=== PATIENT | female | born 1960 | race Caucasian/White ===

== ENCOUNTER 2023-10-30 07:22 | Emergency (ER) | payer MEDICAID, SELFPAY ==
[2023-10-30] VITALS (7 sets, daily range): BP systolic 131–154; BP diastolic 71–83; PULSE 90–111; RESP 15–18; TEMP 36.6–37.1; O2SAT 91–95; BMI 22.4
--- NOTE | 2023-10-30 07:24 | HMH.EDGENADL ---
Discharge Plan Disposition Patient Disposition: Home, Self-Care Condition: Good Prescriptions Prescriptions: No Action atorvastatin 20 mg tablet 20 mg PO DAILY trazodone 50 mg tablet 50 mg PO HS donepezil 10 mg tablet 10 mg PO HS sertraline 100 mg tablet 100 mg PO DAILY olanzapine 10 mg tablet 10 mg PO BID acetaminophen 500 mg tablet 1,000 mg PO NEEDED MDD ' PRN (Reason: Pain) famotidine 20 mg tablet 20 mg PO DAILY lorazepam 2 mg tablet 2 mg PO NEEDED PRN (Reason: behavior) aspirin 81 mg tablet,chewable 81 mg PO DAILY folic acid 1 mg tablet 1 mg PO DAILY polyethylene glycol 3350 17 gram/dose powder 17 g PO DAILY memantine 10 mg tablet 10 mg PO BID cetirizine 10 mg tablet 10 mg PO DAILY Referrals Follow up/Referrals: Provider,Referral, MD [Primary Care Provider] - See instructions Activity Restrictions/Add. Instructions Additional Instructions/Restrictions: You have been evaluated for your abdominal pain, your CT imaging and labs were all reassuring. You were treated for nausea and have been able to keep liquids down. Please continue to take your prescribed medication of famotidine daily before meals. Please return with any new or worsening symptoms. Clinical Impressions Clinical Impression: Abdominal pain Instructions Patient Instructions: DI for Altered Mental Status Discharge ED Provider: Ghanshyam Joshua General Adult HPI General Chief complaint: Altered Mental Status Stated complaint: pysch Time Seen by Provider: 10/30/23 07:23 History of Present Illness HPI narrative: The patient presents with a chief complaint of stomach discomfort, describing the sensation as if her stomach is turning in circles. The discomfort began yesterday after consuming hot green chili. Following the meal, she experienced a feeling of pressure in her stomach and a sensation of being bloated, which prompted concern about potential [place], though she confirms not having vomited either yesterday or today. She also reports experiencing diarrhea but denies the presence of blood in it. The patient has a history of an appendectomy but denies any other regular stomach problems. She is currently on multiple medications, the specifics of which she cannot recall, and denies having diabetes, high blood pressure, or any other chronic medical conditions. The discomfort is localized more towards the upper part of her abdomen, and she describes the area as hard and bloated. She denies any recent antibiotic use or hospitalizations. Additionally, information obtained from another source indicates that the patient has been admitted from [facility] to [place] and has a history of COPD, hyperlipidemia, and dementia. There is a mention of possible recent changes to her medications. Please note that above description of symptoms, in this electronic medical record under categorization of recalled from ER triage doctor by RN are reflective of an initial nursing assessment, however, is not reflective of my full history and physical exam that was personally taken and clarified. Consequentially, this preceding description of symptoms, which may include the patient's categorized chief complaint in the EMR, do not reflect my personal clinical impression, and the ultimate description of history of present illness and patient stated complaints should be deferred to this section of the note. Unless stated otherwise or congruent with this section of the note, additional signs, symptoms, or incongruence should be interpreted as inaccurate with my clinical impression. Related Data Home Medications Medication Instructions Recorded Confirmed acetaminophen 500 mg tablet 1,000 mg PO NEEDED PRN Pain 10/30/23 10/30/23 aspirin 81 mg chewable tablet 81 mg PO DAILY 10/30/23 10/30/23 atorvastatin 20 mg tablet 20 mg PO DAILY 10/30/23 10/30/23 cetirizine 10 mg tablet 10 mg PO DAILY 10/30/23 10/30/23 donepezil 10 mg tablet 10 mg PO HS 10/30/23 10/30/23 famotidine 20 mg tablet 20 mg PO DAILY 10/30/23 10/30/23 folic acid 1 mg tablet 1 mg PO DAILY 10/30/23 10/30/23 lorazepam 2 mg tablet 2 mg PO NEEDED PRN behavior 10/30/23 10/30/23 memantine 10 mg tablet 10 mg PO BID 10/30/23 10/30/23 olanzapine 10 mg tablet 10 mg PO BID 10/30/23 10/30/23 polyethylene glycol 3350 17 17 g PO DAILY 10/30/23 10/30/23 gram/dose oral powder sertraline 100 mg tablet 100 mg PO DAILY 10/30/23 10/30/23 trazodone 50 mg tablet 50 mg PO HS 10/30/23 10/30/23 Allergies Allergy/AdvReac Type Severity Reaction Status Date / Time cephalexin [From Keflex] Allergy Verified 10/30/23 07:37 risperidone [From Risperdal] Allergy Verified 10/30/23 07:37 [facility] Disclaimer: The information contained in this section may have been updated after the patient was seen, as this information can be updated by other users. Medical History (Updated 10/30/23 @ 10:32 by Ghanshyam Joshua MD) Personal history of traumatic brain injury Tremor, unspecified Age-related osteoporosis without current pathological fracture Gastro-esophageal reflux disease without esophagitis Vascular dementia, unspecified severity, without behavioral disturbance, psychotic disturbance, mood disturbance, and anxiety Vascular dementia, unspecified severity, with other behavioral disturbance Dementia with behavioral disturbance Major depressive disorder, single episode, unspecified Unspecified mood [affective] disorder Other seasonal allergic rhinitis Alcohol abuse Hyperlipemia Insomnia COPD (chronic obstructive pulmonary disease) Social History Smoking Status: Never smoker alcohol intake: former current occupational status: other Travel in the last 8 weeks: None ROS Obtained: Yes other As per HPI Physical Exam General General appearance: alert and in no apparent distress Head Head exam: atraumatic and normocephalic Eye Eye exam: Present normal appearance Neck Neck exam: Present normal inspection Chest Chest inspection: Present normal inspection and symmetric chest wall rise Respiratory Respiratory exam: Present normal lung sounds bilaterally; Absent respiratory distress Cardiovascular Cardiovascular exam: Present regular rate and normal rhythm Abdominal Exam Abdominal exam: Present soft and distention; Absent guarding or rigidity Abdominal tenderness: Present epigastrium and mild Neurological Exam Neurological exam: Present alert and oriented X3 Psychiatric Psychiatric exam: Present normal affect and normal mood Skin Skin exam: Present warm and dry Medical Decision Making Medical Records Medical records reviewed: Yes I reviewed the patient's medical records. [place] Inquiry Pt receiving controlled substance: No Vital Signs: 10/30/23 07:23 10/30/23 07:30 10/30/23 08:00 Temperature 97.8 F Temperature Source Oral Pulse Rate 106 H 98 H Pulse Rate [Left Radial] 111 H Respiratory Rate 15 Blood Pressure 140/71 131/80 Blood Pressure [Right Arm] 146/77 H Blood Pressure Mean [Right Arm] 100 Blood Pressure Source Blood Pressure Position 02 Sat by Pulse Oximetry 92 L 93 L 93 L Oxygen Delivery Method Room Air Room Air Room Air 10/30/23 09:00 10/30/23 09:30 10/30/23 10:01 Temperature Temperature Source Pulse Rate 93 H 100 H 97 H Pulse Rate [Left Radial] Respiratory Rate Blood Pressure 152/74 H 154/82 H 150/83 H Blood Pressure [Right Arm] Blood Pressure Mean [Right Arm] Blood Pressure Source Blood Pressure Position 02 Sat by Pulse Oximetry 92 L 94 L 91 L Oxygen Delivery Method Room Air 10/30/23 10:56 Temperature 98.7 F Temperature Source Oral Pulse Rate 90 Pulse Rate [Left Radial] Respiratory Rate 18 Blood Pressure 150/80 H Blood Pressure [Right Arm] Blood Pressure Mean [Right Arm] Blood Pressure Source Automatic Cuff Blood Pressure Position Supine 02 Sat by Pulse Oximetry Oxygen Delivery Method Room Air Lab Data Lab Results 10/30/23 07:55: WBC 9.9, RBC 4.45, Hgb 13.1, Hct 41.1, MCV 92.4, MCH 29.4, MCHC 31.9, RDW 15.0, Plt Count 254, MPV 8.0, Neut % (Auto) 74.7, Lymph % (Auto) 18.4, [place] % (Auto) 3.4, Eos % (Auto) 2.7, Baso % (Auto) 0.7, Neut # (Auto) 7.4, Lymph # (Auto) 1.8, [place] # (Auto) 0.3, Eos # (Auto) 0.3, Baso # (Auto) 0.1, Sodium 143, Potassium 3.3 L, Chloride 105, Carbon Dioxide 30, Anion Gap 11.3, BUN 15, Creatinine 0.60, Estimated Creat Clear 56, Estimated GFR 101, Est GFR ( Amer) 122, Glucose 127 H, Calcium 9.6, Total Bilirubin 0.4, AST 57 H, ALT 43, Alkaline Phosphatase 104, Total Protein 7.3, Albumin 4.3, Globulin 3.0, Albumin/Globulin Ratio 1.4, Lipase 98 10/30/23 07:55 10/30/23 07:55 Orders (Tests/Meds): ED MEDICATIONS Discontinued Medications Generic Name Dose Route Start Last Admin Trade Name Freq PRN Reason Stop Dose Admin Belladonna Alkaloids 60 ml 10/30/23 07:42 10/30/23 08:00 Belladonna Alkaloids 60 Ml Ml PO 10/30/23 07:43 60 ml ONCE ONE Administration Lactated Ringer's 1,000 mls @ 999 mls/hr 10/30/23 07:42 10/30/23 08:00 Lactated Ringer's 1000 Ml Bag IV 10/30/23 08:42 999 mls/hr .Q1H1M ONE Administration Iopamidol 100 ml 10/30/23 08:53 10/30/23 08:54 Iopamidol-370 (76%);100ml Bottle IV 10/30/23 08:54 100 ml ONCE ONE Administration Ondansetron HCl 4 mg 10/30/23 07:42 10/30/23 08:00 Ondansetron 4mg Odt SL 10/30/23 07:43 4 mg ONCE ONE Administration Sodium Chloride 10 ml 10/30/23 08:53 10/30/23 08:53 Sodium Chloride 0.9% 10ml Syr (Rad Only) IV 10/30/23 08:54 10 ml ONCE ONE Administration Sodium Chloride 50 ml 10/30/23 08:53 10/30/23 08:53 0.9 % Sodium Chloride 50 Ml Vial IV 10/30/23 08:54 50 ml ONCE ONE Administration ORDERS Category Date Time Status CT angio abdomen pelvis Stat Cat Scan 10/30/23 07:42 Completed CBC w/Auto Diff [Complete Blood Count Auto Diff] Stat Lab 10/30/23 07:55 Completed CMP [Comprehensive Metabolic Panel] Stat Lab 10/30/23 07:55 Completed Lipase Stat Lab 10/30/23 07:55 Completed Medical Decision Narrative: Patient with history and exam per above presenting for evaluation of epigastric abdominal pain Diagnoses considered include obstruction, mesenteric ischemia, pancreatitis, PUD, enteritis, referred pain, among others ED workup and treatment included: ED MEDICATIONS Discontinued Medications Generic Name Dose Route Start Last Admin Trade Name Freq PRN Reason Stop Dose Admin Belladonna Alkaloids 60 ml 10/30/23 07:42 10/30/23 08:00 Belladonna Alkaloids 60 Ml Ml PO 10/30/23 07:43 60 ml ONCE ONE Administration Lactated Ringer's 1,000 mls @ 999 mls/hr 10/30/23 07:42 10/30/23 08:00 Lactated Ringer's 1000 Ml Bag IV 10/30/23 08:42 999 mls/hr .Q1H1M ONE Administration Iopamidol 100 ml 10/30/23 08:53 10/30/23 08:54 Iopamidol-370 (76%);100ml Bottle IV 10/30/23 08:54 100 ml ONCE ONE Administration Ondansetron HCl 4 mg 10/30/23 07:42 10/30/23 08:00 Ondansetron 4mg Odt SL 10/30/23 07:43 4 mg ONCE ONE Administration Sodium Chloride 10 ml 10/30/23 08:53 10/30/23 08:53 Sodium Chloride 0.9% 10ml Syr (Rad Only) IV 10/30/23 08:54 10 ml ONCE ONE Administration Sodium Chloride 50 ml 10/30/23 08:53 10/30/23 08:53 0.9 % Sodium Chloride 50 Ml Vial IV 10/30/23 08:54 50 ml ONCE ONE Administration ORDERS Category Date Time Status CT angio abdomen pelvis Stat Cat Scan 10/30/23 07:42 Completed CBC w/Auto Diff [Complete Blood Count Auto Diff] Stat Lab 10/30/23 07:55 Completed CMP [Comprehensive Metabolic Panel] Stat Lab 10/30/23 07:55 Completed Lipase Stat Lab 10/30/23 07:55 Completed Labs were independently interpreted by me, significant for no acute findings Imaging was independently visualized and interpreted by me, significant for no acute findings. Please refer to radiology report for full details. Patient had improvement of symptoms upon repeat evaluation. I discussed my clinical impression with patient and answered all questions. At this time, the evidence for any other entities in the differential is insufficient to warrant any further testing or ED observation. This was explained to the patient. The patient was advised that persistent or worsening symptoms require further evaluation. I confirmed the patient's understanding of this discussion. Critical Care Critical Care Time Critical Care Time: No
--- NOTE | 2023-10-30 07:42 | CT_ITS ---
PROCEDURE INFORMATION: Exam: CTA Abdomen and Pelvis With Contrast Exam date and time: 10/30/2023 8:41 AM Age: 63 years old Clinical indication: Other: Nausea, diarrhea; Abdominal pain; Generalized; Additional info: Diffuse abdominal pain, nausea, diarrhea TECHNIQUE: Imaging protocol: Computed tomographic angiography of the abdomen and pelvis with contrast. Exam focused on the arteries. 3D rendering (Not supervised by radiologist): MIP and/or 3D reconstructed images were created by the technologist. Radiation optimization: All CT scans at this facility use at least one of these dose optimization techniques: automated exposure control; mA and/or kV adjustment per patient size (includes targeted exams where dose is matched to clinical indication); or iterative reconstruction. Contrast material: ISOVUE; Contrast volume: 100 ml; Contrast route: INTRAVENOUS (IV); COMPARISON: No relevant prior studies available. FINDINGS: Aorta: No aortic aneurysm. No aortic dissection. Celiac trunk and mesenteric arteries: No occlusion or significant stenosis. Renal arteries: No occlusion or significant stenosis. Right iliac arteries: No occlusion or significant stenosis. Left iliac arteries: No occlusion or significant stenosis. Liver: No mass. Gallbladder and bile ducts: Unremarkable. No calcified stones. No ductal dilation. Pancreas: Unremarkable. No mass. No ductal dilation. Spleen: Unremarkable. No splenomegaly. Adrenal glands: Unremarkable. No mass. Kidneys and ureters: Unremarkable. No solid mass. No hydronephrosis. Stomach and bowel: Unremarkable. No obstruction. No mucosal thickening. Appendix: No evidence of appendicitis. Intraperitoneal space: Unremarkable. No free air. No significant fluid collection. Lymph nodes: Unremarkable. No enlarged lymph nodes. Urinary bladder: Unremarkable. No mass. Reproductive: Unremarkable as visualized. Bones/joints: Schmorl's nodes within multiple thoracic and lumbar vertebral bodies. Soft tissues: Unremarkable. Other findings: Previous granulomatous exposure. IMPRESSION: Unremarkable CTA.
[2023-10-30] MEDS: ONDANSETRON 4MG ODT 4 MG SL (08:00)
[2023-10-30] MEDS: BELLADONNA ALKALOIDS 60 ML ML PO (08:00)
[2023-10-30] MEDS: LACTATED RINGERS 1000ML 1,000 ML 999 ML IV (08:00)
[2023-10-30 08:06] LABS: Basophils # 0.1 K/mm3 (0-0.2); Basophils % 0.7 % (0.1-2.0); Eosinophils # 0.3 K/mm3 (0.0-0.4); Eosinophils % 2.7 % (0.1-12.0); Hematocrit 41.1 % (37.0-47.0); Hemoglobin 13.1 g/dL (12.2-16.2); Lymphocytes # 1.8 K/mm3 (0.7-4.5); Lymphocytes % 18.4 % (10-50); Mean Corpuscular HGB Conc 31.9 g/dL (31.8-35.4); Mean Corpuscular Hemoglobin 29.4 pg (27.0-31.2); Mean Corpuscular Volume 92.4 fl (81-99); Monocytes # 0.3 K/mm3 (0.1-1.0); Monocytes % 3.4 % (1.7-9.3); Neutrophils # 7.4 K/mm3 (1.8-7.8); Neutrophils % 74.7 % (37.0-80.0); Platelet Count 254 K/mm3 (142-424); Red Blood Count 4.45 M/mm3 (4.20-5.40); White Blood Count 9.9 K/mm3 (4.8-10.8)
[2023-10-30 08:21] LABS: Alanine Aminotransferase 43 U/L (12-78); Albumin Level 4.3 g/dl (3.5-5.0); Albumin/Globulin Ratio 1.4 (1.1-1.8); Alkaline Phosphatase 104 U/L (38-126); Anion Gap 11.3 mEq/L (5-15); Aspartate Amino Transferase 57 U/L (14-36); Bilirubin,Total 0.4 mg/dl (0.2-1.3); Blood Urea Nitrogen 15 mg/dl (7-17); Calcium 9.6 mg/dl (8.4-10.2); Carbon Dioxide 30 mmol/L (22.0-30.0); Chloride 105 mmol/L (98-107); Creatinine Clearance Estimated 56 mL/min (50-200); Estimated Glomerular Filt Rate 101 ml/min (>60); GFR (African American) 122 ML/MIN (>60); Glucose 127 mg/dl (74-100); Lipase 98 U/L (23-300); Potassium 3.3 mmoL/L (3.5-5.1); Sodium 143 mmol/L (136-145); Total Protein,Serum 7.3 g/dl (6.3-8.2)
--- NOTE | 2023-10-30 08:40 | PC.NURSE ---
pt gone to ct
--- NOTE | 2023-10-30 08:49 | PC.NURSE ---
pt arrived back to room
[2023-10-30] MEDS: 0.9 % SODIUM CHLORIDE 50 ML VIAL IV (08:53)
[2023-10-30] MEDS: SODIUM CHLORIDE 0.9% 10ML SYR (RAD ONLY) 10 ML IV (08:53)
[2023-10-30] MEDS: IOPAMIDOL-370 (76%);100ML BOTTLE 100 ML IV (08:54)
== END 2023-10-30 11:09 | disposition home or self-care (01) ==
PROVIDERS: Emergency Provider Emergency Medicine
DX: R10.10 Upper abdominal pain, unspecified (principal); K21.9 Gastro-esophageal reflux disease without esophagitis; J44.9 Chronic obstructive pulmonary disease, unspecified; E78.5 Hyperlipidemia, unspecified
CPT/HCPCS: 74174; 80053; 83690; 85025; 96360; 99284; J7120; Q9967

== ENCOUNTER 2023-10-30 13:41 | Outpatient (CLI) | payer MEDICAID, SELFPAY ==
[2023-10-30 13:52] LABS: Microscopic, Urine URINE MICROSCOPIC (MICROSCOPIC)
[2023-10-30 14:52] LABS: Appearance,Urine CLEAR (Clear); Bilirubin,Urine Negative (Negative); Blood, Urine Negative (Negative); Color,Urine YELLOW (Yellow); Glucose,Urine (UA) Negative (Negative); Ketones,Urine Negative (Negative); Leukocyte Esterase,Urine Negative (Negative); Nitrate,Urine Negative (Negative); Protein,Urine Negative (Negative); Specific Gravity, Urine 1.015 (1.005-1.030); Urobilinogen,Urine 0.2 EU/dl (0.2)
== END 2023-10-30 23:59 | disposition home or self-care (01) ==
LOC: LAB 13:45
PROVIDERS: PCP Internal Medicine Adolescent Medicine; Visit Provider Internal Medicine Adolescent Medicine
DX: M54.50 Low back pain, unspecified (principal); R39.81 Functional urinary incontinence
CPT/HCPCS: 81001

== ENCOUNTER 2023-11-01 13:57 | Emergency (ER) | payer MEDICAID, SELFPAY ==
[2023-11-01] VITALS (12 sets, daily range): BP systolic 107–159; BP diastolic 60–105; PULSE 86–127; RESP 16–24; TEMP -17.7–36.2; O2SAT 88–95; BMI 24.7
--- NOTE | 2023-11-01 14:18 | HMH.EDGENADL ---
Discharge Plan Disposition Patient Disposition: Xfer SNF Condition: Fair Prescriptions Prescriptions: New sulfamethoxazole-trimethoprim [Bactrim DS] 800-160 mg tablet 1 tab PO BID 5 Days Qty: 10 0RF No Action atorvastatin 20 mg tablet 20 mg PO DAILY trazodone 50 mg tablet 50 mg PO HS donepezil 10 mg tablet 10 mg PO HS sertraline 100 mg tablet 100 mg PO DAILY olanzapine 10 mg tablet 10 mg PO BID acetaminophen 500 mg tablet 1,000 mg PO NEEDED MDD ' PRN (Reason: Pain) famotidine 20 mg tablet 20 mg PO DAILY lorazepam 2 mg tablet 2 mg PO NEEDED PRN (Reason: behavior) aspirin 81 mg tablet,chewable 81 mg PO DAILY folic acid 1 mg tablet 1 mg PO DAILY polyethylene glycol 3350 17 gram/dose powder 17 g PO DAILY memantine 10 mg tablet 10 mg PO BID cetirizine 10 mg tablet 10 mg PO DAILY Activity Restrictions/Add. Instructions Additional Instructions/Restrictions: Patient was diagnosed with possible urinary tract infection in the emergency department and first dose of Bactrim was given. She needs to complete a course of antibiotics until cultures are back. Clinical Impressions Clinical Impression: Dementia with behavioral disturbance Urinary tract infectious disease Qualifiers: Urinary tract infection type: site unspecified Hematuria presence: with hematuria Qualified Code(s): N39.0 - Urinary tract infection, site not specified Discharge ED Provider: Wander Andrews General Adult HPI <SUNITA Eaton - Last Filed: 11/01/23 18:49> General Chief complaint: Altered Mental Status Stated complaint: AMS Time Seen by Provider: 11/01/23 14:09 Mode of Arrival: EMS Source of Information: EMS Limitations: No Limitations Description of Symptoms (Recalled from ER Triage Doc. by RN): Per EMS patient has not been herself at the custodial. Refusing care, hitting staff and not cooperating with staff. Brought to ER for possible sedation. States that she has been directly admitted to [facility] and family attempted to take her when she started hitting and trying to climb out of the car. History of Present Illness HPI narrative: Patient is here for evaluation of altered mental status. Patient information is limited however patient comes from [facility], where she was placed for dementia with mood disturbance. Patient herself cannot provide no history and currently has a Glascow coma score of 4 ? 3 ? 5 however sees slightly restless and does not follow commands. Apparently the story is that she was having increased negative behaviors at the custodial including walking into patient's rooms and possibly being aggressive of that is not confirmed. There were arrangements for the patient to go [facility] via EMS transfer although for reasons that are not quite clear at the moment patient was transferred to our facility for evaluation. Related Data Home Medications Medication Instructions Recorded Confirmed acetaminophen 500 mg tablet 1,000 mg PO NEEDED PRN Pain 10/30/23 10/30/23 aspirin 81 mg chewable tablet 81 mg PO DAILY 10/30/23 10/30/23 atorvastatin 20 mg tablet 20 mg PO DAILY 10/30/23 10/30/23 cetirizine 10 mg tablet 10 mg PO DAILY 10/30/23 10/30/23 donepezil 10 mg tablet 10 mg PO HS 10/30/23 10/30/23 famotidine 20 mg tablet 20 mg PO DAILY 10/30/23 10/30/23 folic acid 1 mg tablet 1 mg PO DAILY 10/30/23 10/30/23 lorazepam 2 mg tablet 2 mg PO NEEDED PRN behavior 10/30/23 10/30/23 memantine 10 mg tablet 10 mg PO BID 10/30/23 10/30/23 olanzapine 10 mg tablet 10 mg PO BID 10/30/23 10/30/23 polyethylene glycol 3350 17 17 g PO DAILY 10/30/23 10/30/23 gram/dose oral powder sertraline 100 mg tablet 100 mg PO DAILY 10/30/23 10/30/23 trazodone 50 mg tablet 50 mg PO HS 10/30/23 10/30/23 Previous Rx's Medication Instructions Recorded sulfamethoxazole 800 1 tab PO BID 5 days #10 tabs 11/01/23 mg-trimethoprim 160 mg tablet (Bactrim DS) Allergies Allergy/AdvReac Type Severity Reaction Status Date / Time cephalexin [From Keflex] Allergy Verified 10/30/23 07:37 risperidone [From Risperdal] Allergy Verified 10/30/23 07:37 [facility] <SUNITA Eaton - Last Filed: 11/01/23 18:49> [facility] Disclaimer: The information contained in this section may have been updated after the patient was seen, as this information can be updated by other users. Medical History (Updated 11/01/23 @ 15:35 by SUNITA Eaton) Personal history of traumatic brain injury Tremor, unspecified Age-related osteoporosis without current pathological fracture Gastro-esophageal reflux disease without esophagitis Vascular dementia, unspecified severity, without behavioral disturbance, psychotic disturbance, mood disturbance, and anxiety Vascular dementia, unspecified severity, with other behavioral disturbance Dementia with behavioral disturbance Major depressive disorder, single episode, unspecified Unspecified mood [affective] disorder Other seasonal allergic rhinitis Alcohol abuse Hyperlipemia Insomnia COPD (chronic obstructive pulmonary disease) Social History (Updated 10/31/23 @ 17:31 by Ghanshyam Joshua MD) Smoking Status: Never smoker alcohol intake: former current occupational status: other Travel in the last 8 weeks: None <SUNITA Eaton - Last Filed: 11/01/23 18:49> ROS Obtained: Yes Systems reviewed as appropriate & no additional complaints except as documented Physical Exam <SUNITA Eaton - Last Filed: 11/01/23 18:49> General General appearance: in no apparent distress and anxious Head Head exam: atraumatic and normal inspection Eye Eye exam: Present normal appearance and EOMI ENT ENT exam: Present normal exam, normal oropharynx and mucous membranes moist Neck Neck exam: Present normal inspection, full ROM and trachea midline Chest Chest inspection: Present normal inspection and symmetric chest wall rise Respiratory Respiratory exam: Present normal lung sounds bilaterally; Absent respiratory distress Cardiovascular Cardiovascular exam: Present regular rate and normal rhythm Abdominal Exam Abdominal exam: Present soft and normal bowel sounds; Absent tenderness or guarding Extremities Exam Extremities exam: Present normal inspection and full ROM Back Exam Back exam: Present normal inspection and full ROM Neurological Exam Neurological exam: Present alert and CN II-XII intact; Absent oriented X3 (Patient's current Glascow coma score is a 4-3-5) Psychiatric Psychiatric exam: Present agitated (Patient is very nonverbal and does not respond to direct questioning and makes sounds and a few words that are not understandable) Skin Skin exam: Present warm, dry and normal color Medical Decision Making <SUNITA Eaton - Last Filed: 11/01/23 18:49> Medical Records Medical records reviewed: Yes I reviewed the patient's medical records. Isreal Inquiry Pt receiving controlled substance: No Vital Signs: 11/01/23 13:57 11/01/23 14:01 11/01/23 14:27 Temperature 97.2 F L Temperature Source Axillary Pulse Rate 112 H 123 H Pulse Rate [Radial] 86 Respiratory Rate 18 16 24 Blood Pressure 111/62 120/87 Blood Pressure [Right Arm] 114/86 Blood Pressure Mean Blood Pressure Mean [Right Arm] 95 Blood Pressure Source Blood Pressure Source [Right Arm] Automatic Cuff Blood Pressure Position Blood Pressure Position [Right Arm] Sitting 02 Sat by Pulse Oximetry 90 L 90 L 89 L Oxygen Delivery Method Room Air Room Air 11/01/23 15:00 11/01/23 15:29 11/01/23 16:00 Temperature Temperature Source Pulse Rate 127 H 105 H 103 H Pulse Rate [Radial] Respiratory Rate 18 16 Blood Pressure 107/60 L 122/73 140/81 Blood Pressure [Right Arm] Blood Pressure Mean Blood Pressure Mean [Right Arm] Blood Pressure Source Blood Pressure Source [Right Arm] Blood Pressure Position Supine Blood Pressure Position [Right Arm] 02 Sat by Pulse Oximetry 91 L 88 L 90 L Oxygen Delivery Method Room Air Room Air Room Air 11/01/23 16:30 11/01/23 17:00 11/01/23 17:30 Temperature Temperature Source Pulse Rate 100 H 109 H 112 H Pulse Rate [Radial] Respiratory Rate 17 Blood Pressure 137/77 157/77 H 142/69 H Blood Pressure [Right Arm] Blood Pressure Mean Blood Pressure Mean [Right Arm] Blood Pressure Source Blood Pressure Source [Right Arm] Blood Pressure Position Blood Pressure Position [Right Arm] 02 Sat by Pulse Oximetry 93 L 92 L 93 L Oxygen Delivery Method Room Air Room Air Room Air 11/01/23 18:00 11/01/23 18:30 11/01/23 21:11 Temperature 0 F L Temperature Source Oral Pulse Rate 109 H 101 H 99 H Pulse Rate [Radial] Respiratory Rate 16 Blood Pressure 142/83 H 121/70 159/105 H Blood Pressure [Right Arm] Blood Pressure Mean 95 Blood Pressure Mean [Right Arm] Blood Pressure Source Automatic Cuff Blood Pressure Source [Right Arm] Blood Pressure Position Sitting Blood Pressure Position [Right Arm] 02 Sat by Pulse Oximetry 91 L 90 L Oxygen Delivery Method Room Air Room Air Room Air Lab Data Lab results reviewed: Yes I reviewed the patient's lab results. Lab Results 11/01/23 14:25: Urine Color Yellow, Urine Appearance Sl cloudy, Urine pH 7.0, Ur Specific [place] 1.025, Urine Protein Negative, Urine Glucose (UA) Negative, Urine Ketones Trace, Urine Blood Negative, Urine Nitrate Negative, Urine Bilirubin 1+ A, Urine Urobilinogen 1.0, Ur Leukocyte Esterase Negative, Urine RBC None, Urine WBC 3-5, Ur Squamous Epith Cells 5-10, Calcium Oxalate Crystal 2+, Urine Bacteria 1+, Hyaline Casts Occasional, Urine Mucus 2+, Urine Opiates Screen Negative, Urine Methadone Screen Negative, Ur Barbituates Screen Negative, Ur Phencyclidine Scrn Negative, Ur Amphetamines Screen Negative, U Benzodiazepines Scrn Positive H, Urine Cocaine Screen Negative, U Marijuana (THC) Screen Negative 11/01/23 16:55: WBC 10.5, RBC 4.77, Hgb 13.9, Hct 43.5, MCV 91.2, MCH 29.0, MCHC 31.8, RDW 14.8, Plt Count 284, MPV 8.4, Neut % (Auto) 73.9, Lymph % (Auto) 19.8, [place] % (Auto) 4.5, Eos % (Auto) 0.9, Baso % (Auto) 0.9, Neut # (Auto) 7.7, Lymph # (Auto) 2.1, [place] # (Auto) 0.5, Eos # (Auto) 0.1, Baso # (Auto) 0.1, Sodium 143, Potassium 3.8, Chloride 106, Carbon Dioxide 29, Anion Gap 11.8, BUN 20 H D, Creatinine 0.70, Estimated Creat Clear 58, Estimated GFR 85, Est GFR ( Amer) 102, Glucose 107 H, Calcium 10.4 H, Total Bilirubin 0.3, AST 42 H D, ALT 37, Alkaline Phosphatase 134 H, Total Protein 7.8, Albumin 4.4, Globulin 3.4 H, Albumin/Globulin Ratio 1.3, Salicylates < 1.0 L, Acetaminophen < 10 L 11/01/23 16:55 11/01/23 16:55 Orders (Tests/Meds): ED MEDICATIONS Discontinued Medications Generic Name Dose Route Start Last Admin Trade Name Freq PRN Reason Stop Dose Admin Trimethoprim/Sulfamethoxazole 1 each 11/01/23 15:34 11/01/23 17:09 Sulfa/Trimethoprim 1 Tablet PO 11/01/23 15:35 1 each ONCE ONE Administration ORDERS Category Date Time Status Acetaminophen Stat Lab 11/01/23 16:55 Completed Complete Blood Count Auto Diff Stat Lab 11/01/23 16:55 Completed Comprehensive Metabolic Panel Stat Lab 11/01/23 16:55 Completed Salicylate Stat Lab 11/01/23 16:55 Completed UA [Urinalysis and Microscopic] Stat Lab 11/01/23 14:25 Completed UDS [Drug Screen,Urine] Stat Lab 11/01/23 14:25 Completed Medical Decision Narrative: In summary patient is a 63-year-old female who presents to the emergency department for evaluation of altered mental status. Patient is hemodynamically stable upon arrival, afebrile. Physical exam is remarkable for altered mental status although patient is awake she is not interactive or oriented nor can she participate in exam or history taking. The remainder of her physical exam is nonfocal and unremarkable. Differential diagnosis includes occult infection, toxic metabolic encephalopathy, dementia with behavioral disturbance. Initial workup will be conducted with urinalysis. Initial interventions include possible sedation if patient's behavior escalates however she is remaining in bed currently. Unfortunately due to the patient's arrival in our facility she has been on excepted at [facility]. We are petitioning for the patient to be involuntarily committed. There is no family present currently although we have attempted to contact them. Subsequently we have started paperwork for involuntary committal to [facility] and we await the court's approval. Patient has been evaluated remotely by leidy Hanks. Upon reassessment patient has slight evidence of urinary tract infection which we have already initiated treatment for until cultures are back. Patient's behavior while here has been appropriate and an problematic. Patient is required no chemical restraints of any kind or any type of redirection while here. Given this she is appropriate for discharge back to [facility]. <Wander Andrews MD - Last Filed: 11/05/23 07:19> Vital Signs: 11/01/23 13:57 11/01/23 14:01 11/01/23 14:27 Temperature 97.2 F L Temperature Source Axillary Pulse Rate 112 H 123 H Pulse Rate [Radial] 86 Respiratory Rate 18 16 24 Blood Pressure 111/62 120/87 Blood Pressure [Right Arm] 114/86 Blood Pressure Mean Blood Pressure Mean [Right Arm] 95 Blood Pressure Source Blood Pressure Source [Right Arm] Automatic Cuff Blood Pressure Position Blood Pressure Position [Right Arm] Sitting 02 Sat by Pulse Oximetry 90 L 90 L 89 L Oxygen Delivery Method Room Air Room Air 11/01/23 15:00 11/01/23 15:29 11/01/23 16:00 Temperature Temperature Source Pulse Rate 127 H 105 H 103 H Pulse Rate [Radial] Respiratory Rate 18 16 Blood Pressure 107/60 L 122/73 140/81 Blood Pressure [Right Arm] Blood Pressure Mean Blood Pressure Mean [Right Arm] Blood Pressure Source Blood Pressure Source [Right Arm] Blood Pressure Position Supine Blood Pressure Position [Right Arm] 02 Sat by Pulse Oximetry 91 L 88 L 90 L Oxygen Delivery Method Room Air Room Air Room Air 11/01/23 16:30 11/01/23 17:00 11/01/23 17:30 Temperature Temperature Source Pulse Rate 100 H 109 H 112 H Pulse Rate [Radial] Respiratory Rate 17 Blood Pressure 137/77 157/77 H 142/69 H Blood Pressure [Right Arm] Blood Pressure Mean Blood Pressure Mean [Right Arm] Blood Pressure Source Blood Pressure Source [Right Arm] Blood Pressure Position Blood Pressure Position [Right Arm] 02 Sat by Pulse Oximetry 93 L 92 L 93 L Oxygen Delivery Method Room Air Room Air Room Air 11/01/23 18:00 11/01/23 18:30 11/01/23 21:11 Temperature 0 F L Temperature Source Oral Pulse Rate 109 H 101 H 99 H Pulse Rate [Radial] Respiratory Rate 16 Blood Pressure 142/83 H 121/70 159/105 H Blood Pressure [Right Arm] Blood Pressure Mean 95 Blood Pressure Mean [Right Arm] Blood Pressure Source Automatic Cuff Blood Pressure Source [Right Arm] Blood Pressure Position Sitting Blood Pressure Position [Right Arm] 02 Sat by Pulse Oximetry 91 L 90 L Oxygen Delivery Method Room Air Room Air Room Air Lab Data Lab Results 11/01/23 14:25: Urine Color Yellow, Urine Appearance Sl cloudy, Urine pH 7.0, Ur Specific [place] 1.025, Urine Protein Negative, Urine Glucose (UA) Negative, Urine Ketones Trace, Urine Blood Negative, Urine Nitrate Negative, Urine Bilirubin 1+ A, Urine Urobilinogen 1.0, Ur Leukocyte Esterase Negative, Urine RBC None, Urine WBC 3-5, Ur Squamous Epith Cells 5-10, Calcium Oxalate Crystal 2+, Urine Bacteria 1+, Hyaline Casts Occasional, Urine Mucus 2+, Urine Opiates Screen Negative, Urine Methadone Screen Negative, Ur Barbituates Screen Negative, Ur Phencyclidine Scrn Negative, Ur Amphetamines Screen Negative, U Benzodiazepines Scrn Positive H, Urine Cocaine Screen Negative, U Marijuana (THC) Screen Negative 11/01/23 16:55: WBC 10.5, RBC 4.77, Hgb 13.9, Hct 43.5, MCV 91.2, MCH 29.0, MCHC 31.8, RDW 14.8, Plt Count 284, MPV 8.4, Neut % (Auto) 73.9, Lymph % (Auto) 19.8, [place] % (Auto) 4.5, Eos % (Auto) 0.9, Baso % (Auto) 0.9, Neut # (Auto) 7.7, Lymph # (Auto) 2.1, [place] # (Auto) 0.5, Eos # (Auto) 0.1, Baso # (Auto) 0.1, Sodium 143, Potassium 3.8, Chloride 106, Carbon Dioxide 29, Anion Gap 11.8, BUN 20 H D, Creatinine 0.70, Estimated Creat Clear 58, Estimated GFR 85, Est GFR ( Amer) 102, Glucose 107 H, Calcium 10.4 H, Total Bilirubin 0.3, AST 42 H D, ALT 37, Alkaline Phosphatase 134 H, Total Protein 7.8, Albumin 4.4, Globulin 3.4 H, Albumin/Globulin Ratio 1.3, Salicylates < 1.0 L, Acetaminophen < 10 L Orders (Tests/Meds): ED MEDICATIONS Discontinued Medications Generic Name Dose Route Start Last Admin Trade Name Freq PRN Reason Stop Dose Admin Trimethoprim/Sulfamethoxazole 1 each 11/01/23 15:34 11/01/23 17:09 Sulfa/Trimethoprim 1 Tablet PO 11/01/23 15:35 1 each ONCE ONE Administration ORDERS Category Date Time Status Acetaminophen Stat Lab 11/01/23 16:55 Completed Complete Blood Count Auto Diff Stat Lab 11/01/23 16:55 Completed Comprehensive Metabolic Panel Stat Lab 11/01/23 16:55 Completed Salicylate Stat Lab 11/01/23 16:55 Completed UA [Urinalysis and Microscopic] Stat Lab 11/01/23 14:25 Completed UDS [Drug Screen,Urine] Stat Lab 11/01/23 14:25 Completed Medical Decision Narrative: In summary patient is a 63-year-old female who presents to the emergency department for evaluation of altered mental status. Patient is hemodynamically stable upon arrival, afebrile. Physical exam is remarkable for altered mental status although patient is awake she is not interactive or oriented nor can she participate in exam or history taking. The remainder of her physical exam is nonfocal and unremarkable. Differential diagnosis includes occult infection, toxic metabolic encephalopathy, dementia with behavioral disturbance. Initial workup will be conducted with urinalysis. Initial interventions include possible sedation if patient's behavior escalates however she is remaining in bed currently. Unfortunately due to the patient's arrival in our facility she has been on excepted at [facility]. We are petitioning for the patient to be involuntarily committed. There is no family present currently although we have attempted to contact them. Subsequently we have started paperwork for involuntary committal to [facility] and we await the court's approval. Patient has been evaluated remotely by leidy Hanks. Upon reassessment patient has slight evidence of urinary tract infection which we have already initiated treatment for until cultures are back. Patient's behavior while here has been appropriate and an problematic. Patient is required no chemical restraints of any kind or any type of redirection while here. Given this she is appropriate for discharge back to [facility]. I was consulted by the LYNN, and we discussed the complexity of the problems being addressed. I approved the treatment and management plan for this patient's care in the emergency department, thus performing a substantive portion of the medical decision making. Wander Andrews MD Critical Care <SUNITA Eaton - Last Filed: 11/01/23 18:49> Critical Care Time Critical Care Time: No
[2023-11-01 14:34] LABS: Microscopic, Urine URINE MICROSCOPIC (MICROSCOPIC)
[2023-11-01 14:49] LABS: Appearance,Urine SL CLOUDY (Clear); Blood, Urine Negative (Negative); Color,Urine YELLOW (Yellow); Glucose,Urine (UA) Negative (Negative); Ketones,Urine TRACE (Negative); Leukocyte Esterase,Urine Negative (Negative); Nitrate,Urine Negative (Negative); Protein,Urine Negative (Negative); Specific Gravity, Urine 1.025 (1.005-1.030)
[2023-11-01 14:55] LABS: Bilirubin,Urine 1+ (Negative)
--- NOTE | 2023-11-01 15:03 | PC.NURSE ---
[phone] FAXED TO DISPATCH FOR INVOLUNTARY HOLD
[2023-11-01 15:06] LABS: Bacteria,Urine 1+ /lpf; Calcium Oxalate Crystals,Urine 2+ /lpf; Hyaline Casts,Urine Occasional #/lpf (0); Mucus,Urine 2+ /lpf
--- NOTE | 2023-11-01 16:51 | PC.NURSE ---
[phone] RECEIVED FROM DISPATCH AT THIS TIME, INFORMATION FAXED TO EBONY LINDER
[2023-11-01] MEDS: SULFA/TRIMETHOPRIM 1 TABLET 1 EACH PO (17:09)
[2023-11-01 17:27] LABS: Basophils # 0.1 K/mm3 (0-0.2); Basophils % 0.9 % (0.1-2.0); Eosinophils # 0.1 K/mm3 (0.0-0.4); Eosinophils % 0.9 % (0.1-12.0); Hematocrit 43.5 % (37.0-47.0); Hemoglobin 13.9 g/dL (12.2-16.2); Lymphocytes # 2.1 K/mm3 (0.7-4.5); Lymphocytes % 19.8 % (10-50); Mean Corpuscular HGB Conc 31.8 g/dL (31.8-35.4); Mean Corpuscular Volume 91.2 fl (81-99); Mean Platelet Volume 8.4 fl (7.4-10.4); Monocytes # 0.5 K/mm3 (0.1-1.0); Monocytes % 4.5 % (1.7-9.3); Neutrophils # 7.7 K/mm3 (1.8-7.8); Neutrophils % 73.9 % (37.0-80.0); Platelet Count 284 K/mm3 (142-424); Red Blood Count 4.77 M/mm3 (4.20-5.40); Red Cell Distribution Width 14.8 % (11.5-17.5); White Blood Count 10.5 K/mm3 (4.8-10.8)
[2023-11-01 17:34] LABS: Chloride 106 mmol/L (98-107); Potassium 3.8 mmoL/L (3.5-5.1); Sodium 143 mmol/L (136-145)
[2023-11-01 17:36] LABS: Alanine Aminotransferase 37 U/L (12-78); Aspartate Amino Transferase 42 U/L (14-36); Blood Urea Nitrogen 20 mg/dl (7-17); Creatinine Clearance Estimated 58 mL/min (50-200); Estimated Glomerular Filt Rate 85 ml/min (>60); GFR (African American) 102 ML/MIN (>60)
[2023-11-01 17:37] LABS: Albumin Level 4.4 g/dl (3.5-5.0); Albumin/Globulin Ratio 1.3 (1.1-1.8); Alkaline Phosphatase 134 U/L (38-126); Anion Gap 11.8 mEq/L (5-15); Bilirubin,Total 0.3 mg/dl (0.2-1.3); Calcium 10.4 mg/dl (8.4-10.2); Carbon Dioxide 29 mmol/L (22.0-30.0); Globulin 3.4 g/dL (1.3-3.2); Glucose 107 mg/dl (74-100); Total Protein,Serum 7.8 g/dl (6.3-8.2)
[2023-11-01 17:38] LABS: Acetaminophen < 10 ug/ml (10-30); Salicylate < 1.0 mg/dL (2.0-20.0)
--- NOTE | 2023-11-01 17:44 | PC.NURSE ---
SPOKE WITH PAUL CUEVAS AT [facility], PT WILL NOT PARTICIPATE WITH ZOOM INTERVIEW. [facility] WILL CONTACT DAUGHTER AND CALL [facility] BACK
--- NOTE | 2023-11-01 19:46 | PC.NURSE ---
Patient lying in bed at this time. Resting with eyes closed.
--- NOTE | 2023-11-01 19:49 | PC.NURSE ---
Spoke with Lisa Bryant at [facility] to inform on patient condition, care provided, and that patient will be transferred back to facility once transport is arranged.
--- NOTE | 2023-11-01 19:51 | PC.NURSE ---
Spoke with daughter to inform that patient will be transported back to [facility] once transportation is available.
[2023-11-01 20:00] LABS: Amphetamine/Metha Screen,Urine Negative ng/ml (<1000)
[2023-11-01 20:01] LABS: Barbiturates Screen,Urine Negative ng/ml (<200); Benzodiazepines Screen,Urine Positive ng/ml (<200)
[2023-11-01 20:02] LABS: Cannabinoid Screen,Urine Negative ng/ml (<50)
[2023-11-01 20:03] LABS: Cocaine Screen,Urine Negative ng/ml (<300); Methadone Screen,Urine Negative ng/ml (<300)
[2023-11-01 20:04] LABS: Opiate Screen,Urine Negative ng/ml (<300)
[2023-11-01 20:05] LABS: Phencyclidine Screen,Urine Negative ng/ml (<25)
--- NOTE | 2023-11-01 20:34 | PC.NURSE ---
EMS arrives for patient transport for return to [facility]
== END 2023-11-01 20:45 ==
PROVIDERS: Physician Assistant; Emergency Provider Student in an Organized Health Care Education/Training Program
DX: F03.918 Unspecified dementia, unspecified severity, with other behavioral disturbance (principal); N39.0 Urinary tract infection, site not specified; R45.1 Restlessness and agitation; J44.9 Chronic obstructive pulmonary disease, unspecified; K21.9 Gastro-esophageal reflux disease without esophagitis; E78.5 Hyperlipidemia, unspecified; R40.2432 Glasgow coma scale score 3-8, at arrival to emergency department
CPT/HCPCS: 80053; 80307; 80329; 81001; 85025; 99285; G0480

== ENCOUNTER 2023-11-28 18:56 | Emergency (ER) | payer MEDICAID, SELFPAY ==
[2023-11-28] VITALS (7 sets, daily range): BP systolic 119–152; BP diastolic 69–87; PULSE 105–133; RESP 15–20; TEMP 36.8; O2SAT 92–99; BMI 23.0
--- NOTE | 2023-11-28 19:09 | CT_ITS ---
PROCEDURE INFORMATION: Exam: CT Thoracic Spine Without Contrast Exam date and time: 11/28/2023 8:24 PM Age: 63 years old Clinical indication: Injury or trauma; Fall; Sprain or strain; Additional info: Fall, AMS, dementia TECHNIQUE: Imaging protocol: Computed tomography of the thoracic spine without contrast. Radiation optimization: All CT scans at this facility use at least one of these dose optimization techniques: automated exposure control; mA and/or kV adjustment per patient size (includes targeted exams where dose is matched to clinical indication); or iterative reconstruction. COMPARISON: CT CERVICAL SPINE WO CON 11/28/2023 8:21 PM FINDINGS: Bones/joints: Chronic T2 and T11 fracture. Acute superior endplate fracture of T10 but no significant loss of vertebral body height or canal compromise. Normal alignment. No significant disc bulge or herniation. No severe spinal canal stenosis. No significant neural foraminal narrowing. Soft tissues: Unremarkable. IMPRESSION: Acute superior endplate fracture of T10 but no significant loss of vertebral body height or canal compromise
--- NOTE | 2023-11-28 19:09 | CT_ITS ---
PROCEDURE INFORMATION: Exam: CT Head Without Contrast Exam date and time: 11/28/2023 8:18 PM Age: 63 years old Clinical indication: Injury or trauma; Fall; Wound, open; Other: Back of head; Not specified; Additional info: Fall, AMS, dementia TECHNIQUE: Imaging protocol: Computed tomography of the head without contrast. Radiation optimization: All CT scans at this facility use at least one of these dose optimization techniques: automated exposure control; mA and/or kV adjustment per patient size (includes targeted exams where dose is matched to clinical indication); or iterative reconstruction. COMPARISON: No relevant prior studies available. FINDINGS: Brain: There is age related atrophy. No hemorrhage. There is periventricular white matter hypodensity consistent with chronic small vessel disease. No mass effect. Cerebral ventricles: No ventriculomegaly. Paranasal sinuses: Visualized sinuses are unremarkable. No fluid levels. Mastoid air cells: Visualized mastoid air cells are well aerated. Orbital cavities: The orbital contents are symmetric and normal. Bones: Unremarkable. No acute fracture. Soft tissues: Small posterior right parietal scalp hematoma and associated laceration. No foreign body. IMPRESSION: 1. No acute intracranial abnormality. 2. Small posterior right parietal scalp hematoma and laceration.
--- NOTE | 2023-11-28 19:09 | ECG_ITS ---
APPROVED REPORT Exam: Resting ECG HR:109 bpm ECG Measurements Heart Rate 109 AXES WI 136 P 69 QRSd 78 QRS 59 QT 316 T 48 QTc 380 Conclusion SINUS TACHYCARDIA ABNORMAL RHYTHM ECG Electronically signed by : ROBIN MADDOX, 11/28/2023 21:41:32
--- NOTE | 2023-11-28 19:09 | CT_ITS ---
PROCEDURE INFORMATION: Exam: CT Cervical Spine Without Contrast Exam date and time: 11/28/2023 8:21 PM Age: 63 years old Clinical indication: Injury or trauma; Fall; Sprain or strain, cervical ligaments; Additional info: Fall, AMS, dementia TECHNIQUE: Imaging protocol: Computed tomography of the cervical spine without contrast. Radiation optimization: All CT scans at this facility use at least one of these dose optimization techniques: automated exposure control; mA and/or kV adjustment per patient size (includes targeted exams where dose is matched to clinical indication); or iterative reconstruction. COMPARISON: 1. CT HEAD/BRAIN WO CON 11/28/2023 8:[address] THORACIC SPINE WO CON 11/28/2023 8:[address] LUMBAR SPINE WO CON 11/28/2023 8:27 PM FINDINGS: Bones: No acute fracture. Normal alignment. Moderate to severe degenerative disc disease from C3 through C6. There are mild superior endplate compression deformities of C7 and T1 with mild associated sclerosis consistent with old injury. Schmorl's node is associated with the superior T1 endplate. Minimal compression deformity of the superior T2 endplate is noted as well. No acute fracture is evident. Diffuse prominent facet arthropathy. No significant disc bulge or herniation. No severe spinal canal stenosis. There is a least mild bilateral bony foraminal stenosis from C3-C4 through C5-C6 mainly secondary to uncovertebral joint osteophyte formation. This is most significant on the left at C5-C6. Lungs: Interstitial disease at the lung apices. Soft tissues: Unremarkable. IMPRESSION: 1. No acute cervical spine fracture is evident. If there is concern for ligamentous injury MR imaging is more sensitive. 2. Old superior endplate compression deformities of C7, T1 and T2. 3. Diffuse spondylosis most significant at C3 through C6.
--- NOTE | 2023-11-28 19:12 | CT_ITS ---
PROCEDURE INFORMATION: Exam: CTA Chest With Contrast Exam date and time: 11/28/2023 8:34 PM Age: 63 years old Clinical indication: Other: Tachycardic; Additional info: Unwitnessed fall, AMS, tachycardic TECHNIQUE: Imaging protocol: Computed tomographic angiography of the chest with contrast. Exam focused on the arteries. 3D rendering (Not supervised by radiologist): MIP and/or 3D reconstructed images were created by the technologist. Radiation optimization: All CT scans at this facility use at least one of these dose optimization techniques: automated exposure control; mA and/or kV adjustment per patient size (includes targeted exams where dose is matched to clinical indication); or iterative reconstruction. Contrast material: ISOVUE 370; Contrast volume: 70 ml; Contrast route: INTRAVENOUS (IV); COMPARISON: CT ANGIO ABDOMEN PELVIS 10/30/2023 8:41 AM FINDINGS: Pulmonary arteries: Normal. No pulmonary emboli. Aorta: Unremarkable. No aortic aneurysm. No aortic dissection. Lungs: Mild atelectasis in the lung bases.. No consolidation. No masses. Pleural spaces: Unremarkable. No pneumothorax. No pleural effusion. Heart: Unremarkable. No cardiomegaly. No pericardial effusion. Lymph nodes: Unremarkable. No enlarged lymph nodes. Bones/joints: Unremarkable. No acute fracture. Soft tissues: Unremarkable. IMPRESSION: No acute findings.
--- NOTE | 2023-11-28 19:12 | CT_ITS ---
PROCEDURE INFORMATION: Exam: CT Abdomen And Pelvis With Contrast Exam date and time: 11/28/2023 8:34 PM Age: 63 years old Clinical indication: Injury or trauma; Fall; Sprain or strain; Additional info: Unwitnessed fall, AMS, tachycardic TECHNIQUE: Imaging protocol: Computed tomography of the abdomen and pelvis with contrast. Radiation optimization: All CT scans at this facility use at least one of these dose optimization techniques: automated exposure control; mA and/or kV adjustment per patient size (includes targeted exams where dose is matched to clinical indication); or iterative reconstruction. Contrast material: ISOVUE; Contrast volume: 70 ml; Contrast route: IV; COMPARISON: CT ANGIO ABDOMEN PELVIS 10/30/2023 8:41 AM FINDINGS: Lungs: Mild atelectasis in the lung bases. Liver: Normal. No mass. Gallbladder and biliary ducts: Normal. No calcified stones. No ductal dilation. Pancreas: Normal. No ductal dilation. Spleen: Normal. No splenomegaly. Adrenal glands: Normal. No mass. Kidneys and ureters: Normal. No hydronephrosis. Stomach and bowel: Unremarkable. No obstruction. No mucosal thickening. Appendix: No evidence of appendicitis. Intraperitoneal space: Unremarkable. No free air. No significant fluid collection. Vasculature: Unremarkable. No abdominal aortic aneurysm. Lymph nodes: Unremarkable. No enlarged lymph nodes. Urinary bladder: Unremarkable as visualized. Reproductive: Unremarkable as visualized. Bones/joints: Acute fracture of L4 with 40% loss of vertebral body height and 40% significant canal compromise. Stable chronic fractures of L3, L2, T11. Soft tissues: Unremarkable. IMPRESSION: No acute intra-abdominal or intrapelvic findings. No solid organ injury Acute L4 compression fracture.
[2023-11-28 19:18] LABS: Chloride 103 mmol/L (98-107); Sodium 142 mmol/L (136-145)
[2023-11-28 19:19] LABS: Potassium 3.9 mmoL/L (3.5-5.1)
[2023-11-28 19:21] LABS: Alanine Aminotransferase 40 U/L (12-78); Albumin Level 4.4 g/dl (3.5-5.0); Albumin/Globulin Ratio 1.2 (1.1-1.8); Alkaline Phosphatase 261 U/L (38-126); Anion Gap 15.9 mEq/L (5-15); Aspartate Amino Transferase 48 U/L (14-36); Bilirubin,Total 0.5 mg/dl (0.2-1.3); Blood Urea Nitrogen 10 mg/dl (7-17); Carbon Dioxide 27 mmol/L (22.0-30.0); Creatinine Clearance Estimated 54 mL/min (50-200); Estimated Glomerular Filt Rate 101 ml/min (>60); GFR (African American) 122 ML/MIN (>60); Globulin 3.7 g/dL (1.3-3.2); Total Protein,Serum 8.1 g/dl (6.3-8.2)
[2023-11-28 19:22] LABS: Calcium 10.2 mg/dl (8.4-10.2); Glucose 134 mg/dl (74-100)
--- NOTE | 2023-11-28 19:31 | ED_ITS ---
Discharge Plan Disposition Patient Disposition: Xfer Short-Term Hosp Condition: Good Prescriptions Prescriptions: No Action atorvastatin 20 mg tablet 20 mg PO DAILY trazodone 50 mg tablet 50 mg PO HS donepezil 10 mg tablet 10 mg PO HS sertraline 100 mg tablet 100 mg PO DAILY olanzapine 10 mg tablet 10 mg PO BID acetaminophen 500 mg tablet 1,000 mg PO NEEDED MDD ' PRN (Reason: Pain) famotidine 20 mg tablet 20 mg PO DAILY lorazepam 2 mg tablet 2 mg PO NEEDED PRN (Reason: behavior) aspirin 81 mg tablet,chewable 81 mg PO DAILY folic acid 1 mg tablet 1 mg PO DAILY polyethylene glycol 3350 17 gram/dose powder 17 g PO DAILY memantine 10 mg tablet 10 mg PO BID cetirizine 10 mg tablet 10 mg PO DAILY sulfamethoxazole-trimethoprim [Bactrim DS] 800-160 mg tablet 1 tab PO BID 5 Days Qty: 10 0RF Referrals Follow up/Referrals: Provider,Referral, MD [Primary Care Provider] - See instructions Clinical Impressions Clinical Impression: Fall, Laceration of scalp, Dehydration, Compression fracture of L4 vertebra, Closed wedge compression fracture of T10 vertebra Discharge ED Provider: Prema Wilde General Adult HPI <Prema Wilde DO - Last Filed: 11/28/23 23:55> General Chief complaint: Fall Stated complaint: fall Time Seen by Provider: 11/28/23 18:59 Mode of Arrival: EMS Source of Information: EMS Limitations: Language Barrier Description of Symptoms (Recalled from ER Triage Doc. by RN): Pt presented to the ED for an unwitnessed fall. Pt does not speak much at baseline but does have 2 abrasion/ laceration areas to the back of the head. EMS said that pt is not on a blood thinner and has not c/o or acted like she has pain in any other area. When EMS got to pt, she was not wearing her oxygen that she is supposed to wear and O2 sats were in 70s and came up quickly to 90s on 2L. When asked if she has pain to her head she said no and has followed commands when asked to do things. History of Present Illness HPI narrative: This patient is a 63-year-old female with a history of vascular dementia and chronic respiratory failure on 2L NC presenting to the emergency department for evaluation with concern for unwitnessed fall. Patient does not provide history given her history of dementia. Nursing facility and noted that the patient had an unwitnessed fall and was found to have 2 lacerations to the back of her head. They called EMS who brought the patient in for evaluation. EMS noted that the patient is not on anticoagulation. On medical record review, I was able to establish the patient's baseline and I can confirm that she is currently at her reported baseline. She does not contribute much to history, only repeating short phrases. No other concerns noted by nursing facility or EMS at this time. Related Data Home Medications Medication Instructions Recorded Confirmed acetaminophen 500 mg tablet 1,000 mg PO NEEDED PRN Pain 10/30/23 10/30/23 aspirin 81 mg chewable tablet 81 mg PO DAILY 10/30/23 10/30/23 atorvastatin 20 mg tablet 20 mg PO DAILY 10/30/23 10/30/23 cetirizine 10 mg tablet 10 mg PO DAILY 10/30/23 10/30/23 donepezil 10 mg tablet 10 mg PO HS 10/30/23 10/30/23 famotidine 20 mg tablet 20 mg PO DAILY 10/30/23 10/30/23 folic acid 1 mg tablet 1 mg PO DAILY 10/30/23 10/30/23 lorazepam 2 mg tablet 2 mg PO NEEDED PRN behavior 10/30/23 10/30/23 memantine 10 mg tablet 10 mg PO BID 10/30/23 10/30/23 olanzapine 10 mg tablet 10 mg PO BID 10/30/23 10/30/23 polyethylene glycol 3350 17 17 g PO DAILY 10/30/23 10/30/23 gram/dose oral powder sertraline 100 mg tablet 100 mg PO DAILY 10/30/23 10/30/23 trazodone 50 mg tablet 50 mg PO HS 10/30/23 10/30/23 Previous Rx's Medication Instructions Recorded sulfamethoxazole 800 1 tab PO BID 5 days #10 tabs 11/01/23 mg-trimethoprim 160 mg tablet (Bactrim DS) Allergies Allergy/AdvReac Type Severity Reaction Status Date / Time cephalexin [From Keflex] Allergy Verified 10/30/23 07:37 risperidone [From Risperdal] Allergy Verified 10/30/23 07:37 [facility] <Prema Wilde, DO - Last Filed: 11/28/23 23:55> [facility] Disclaimer: The information contained in this section may have been updated after the patient was seen, as this information can be updated by other users. Medical History Personal history of traumatic brain injury Tremor, unspecified Age-related osteoporosis without current pathological fracture Gastro-esophageal reflux disease without esophagitis Vascular dementia, unspecified severity, without behavioral disturbance, psychotic disturbance, mood disturbance, and anxiety Vascular dementia, unspecified severity, with other behavioral disturbance Dementia with behavioral disturbance Major depressive disorder, single episode, unspecified Unspecified mood [affective] disorder Other seasonal allergic rhinitis Alcohol abuse Hyperlipemia Insomnia COPD (chronic obstructive pulmonary disease) Social History Smoking Status: Never smoker alcohol intake: former current occupational status: other Travel in the last 8 weeks: None <Prema Wilde DO - Last Filed: 11/28/23 23:55> ROS Obtained: Yes unobtainable due to mental status Physical Exam <Prema Wilde DO - Last Filed: 11/28/23 23:55> General General appearance: alert and in no apparent distress Comment: Confused, muttering to herself Head Head exam: other (2cm to the posterior scalp. Wound hemostatic. Small hematoma. No palpable step-offs or deformities) Eye Eye exam: Present normal appearance, PERRL and EOMI ENT ENT exam: Present normal exam, normal oropharynx, mucous membranes moist and normal external ear exam Neck Neck exam: Present normal inspection, full ROM and trachea midline; Absent tenderness Chest Chest inspection: Present normal inspection and symmetric chest wall rise; Absent tenderness Respiratory Respiratory exam: Present normal lung sounds bilaterally; Absent respiratory distress, wheezes, stridor or accessory muscle use Cardiovascular Cardiovascular exam: Present normal rhythm and tachycardia Abdominal Exam Abdominal exam: Present soft; Absent distention, tenderness or guarding Extremities Exam Extremities exam: Present normal inspection, full ROM and normal capillary refill; Absent tenderness or edema Back Exam Back exam: Present normal inspection and full ROM; Absent tenderness Neurological Exam Neurological exam: Present alert and CN II-XII intact; Absent motor sensory deficit Expanded Neurological Exam Coma scale eye opening: Spontaneous Coma scale motor response: Obeys commands Coma scale verbal response: Confused Coma scale total: 14 Skin Skin exam: Present warm and dry <SUNITA Eaton - Last Filed: 11/28/23 23:31> Expanded Neurological Exam Coma scale total: 14 Medical Decision Making <Prema Pablo DO Andry - Last Filed: 11/28/23 23:55> Medical Records Medical records reviewed: Yes I reviewed the patient's medical records. Isreal Inquiry Pt receiving controlled substance: No Vital Signs: 11/28/23 18:56 11/28/23 19:30 11/28/23 19:42 Temperature 98.3 F Temperature Source Oral Pulse Rate 116 H 109 H Pulse Rate [Right Brachial] 133 H Respiratory Rate 20 15 16 Blood Pressure 126/77 Blood Pressure [Right Arm] 151/70 H Blood Pressure Mean 86 Blood Pressure Mean [Right Arm] 97 02 Sat by Pulse Oximetry 96 92 L 96 Oxygen Delivery Method Nasal Cannula Oxygen Flow Rate (LPM) 2 2 11/28/23 20:00 11/28/23 21:00 11/28/23 21:52 Temperature Temperature Source Pulse Rate 110 H 111 H 110 H Pulse Rate [Right Brachial] Respiratory Rate 16 20 19 Blood Pressure 149/84 H 119/69 152/77 H Blood Pressure [Right Arm] Blood Pressure Mean 97 85 103 Blood Pressure Mean [Right Arm] 02 Sat by Pulse Oximetry 96 99 94 L Oxygen Delivery Method Oxygen Flow Rate (LPM) 2 2 2 11/28/23 22:32 Temperature Temperature Source Pulse Rate 105 H Pulse Rate [Right Brachial] Respiratory Rate 18 Blood Pressure 131/87 Blood Pressure [Right Arm] Blood Pressure Mean 101 Blood Pressure Mean [Right Arm] 02 Sat by Pulse Oximetry 97 Oxygen Delivery Method Oxygen Flow Rate (LPM) 2 Lab Data Lab results reviewed: Yes I reviewed the patient's lab results. Lab Results 11/28/23 18:57: WBC 12.2 H, RBC 4.25, Hgb 12.4, Hct 38.1, MCV 89.7, MCH 29.2, MCHC 32.6, RDW 14.6, Plt Count 386, MPV 8.5, Neut % (Auto) 83.9 H, Lymph % (Auto) 10.5, [place] % (Auto) 4.7, Eos % (Auto) 0.3, Baso % (Auto) 0.5, Neut # (Auto) 10.3 H, Lymph # (Auto) 1.3, [place] # (Auto) 0.6, Eos # (Auto) 0.0, Baso # (Auto) 0.1, Sodium 142, Potassium 3.9, Chloride 103, Carbon Dioxide 27, Anion Gap 15.9 H, BUN 10, Creatinine 0.60, Estimated Creat Clear 54, Estimated GFR 101, Est GFR ( Amer) 122, Glucose 134 H, Calcium 10.2, Total Bilirubin 0.5, AST 48 H, ALT 40, Alkaline Phosphatase 261 H, Troponin I < 0.01, NT-Pro-B Natriuret Pep 100, Total Protein 8.1, Albumin 4.4, Globulin 3.7 H, Albumin/Globulin Ratio 1.2, TSH 2.51, Thyroxine (T4) 10.7 11/28/23 19:09: VBG pH 7.45 H, VBG pCO2 39.4, VBG pO2 71.4 H, VBG HCO3 26.6, VBG Total CO2 27.8 H, VBG O2 Saturation 94.5 H, VBG Base Excess 2.5 H, VBG Lactic Acid 1.5 11/28/23 18:57 11/28/23 18:57 Orders (Tests/Meds): ED MEDICATIONS Discontinued Medications Generic Name Dose Route Start Last Admin Trade Name Freq PRN Reason Stop Dose Admin Acetaminophen 1,000 mg 11/28/23 23:16 11/28/23 23:22 Acetaminophen 1,000mg/100ml Vial IV 11/28/23 23:17 1,000 mg ONCE ONE Administration Haloperidol Lactate 2 mg 11/28/23 21:55 11/28/23 21:59 Haloperidol Lactate 5 Mg/Ml Vial IV 11/28/23 21:56 2 mg ONCE ONE Administration Lactated Ringer's 1,000 mls @ 999 mls/hr 11/28/23 19:10 11/28/23 19:39 Lactated Ringer's 1000 Ml Bag IV 11/28/23 20:10 999 mls/hr .Q1H1M ONE Administration Lactated Ringer's 1,000 mls @ 999 mls/hr 11/28/23 21:12 11/28/23 21:53 Lactated Ringer's 1000 Ml Bag IV 11/28/23 22:12 999 mls/hr .Q1H1M ONE Administration Iopamidol 70 ml 11/28/23 20:51 11/28/23 20:52 Iopamidol-370 (76%);100ml Bottle IV 11/28/23 20:52 70 ml ONCE ONE Administration Ketorolac Tromethamine 15 mg 11/28/23 23:16 11/28/23 23:22 Ketorolac 30mg/Ml Vial IV 11/28/23 23:17 15 mg ONCE ONE Administration Sodium Chloride 40 ml 11/28/23 20:51 11/28/23 20:52 0.9 % Sodium Chloride 50 Ml Vial IV 11/28/23 20:52 40 ml ONCE ONE Administration Sodium Chloride 10 ml 11/28/23 20:51 11/28/23 20:52 Sodium Chloride 0.9% 10ml Syr (Rad Only) IV 11/28/23 20:52 10 ml ONCE ONE Administration Tetanus/Reduced Diphtheria/Acell Pertussis 0.5 ml 11/28/23 19:16 11/28/23 19:52 Tet/Diphth/Pert-Adult 0.5ml Syringe IM 11/28/23 19:17 0.5 ml .ONCE ONE Administration ORDERS Category Date Time Status CT abdomen pelvis w con Stat Cat Scan 11/28/23 19:[address] cervical spine wo con Stat Cat Scan 11/28/23 19:[address] head/brain wo con Stat Cat Scan 11/28/23 19:[address] lumbar spine wo con Stat Cat Scan 11/28/23 20:[address] thoracic spine wo con Stat Cat Scan 11/28/23 19:09 Completed CTA Chest [CT angio chest PE protocol] Stat Cat Scan 11/28/23 19:12 Completed BNP [NT Pro Brain Natriuretic Pep.] Stat Lab 11/28/23 18:57 Completed CBC w/Auto Diff [Complete Blood Count Auto Diff] Stat Lab 11/28/23 18:57 Completed CMP [Comprehensive Metabolic Panel] Stat Lab 11/28/23 18:57 Completed T4 (Thyroxine) Stat Lab 11/28/23 18:57 Completed TSH [Thyroid Stimulating Hormone] Stat Lab 11/28/23 18:57 Completed Trop I [Troponin I] Stat Lab 11/28/23 18:57 Completed Troponin I Q3H Lab 11/28/23 22:15 Ordered Troponin I Q3H Lab 11/29/23 01:15 Ordered UA [Urinalysis and Microscopic] Stat Lab 11/28/23 19:09 Ordered Urine Culture Stat Micro 11/28/23 19:09 Ordered VBG [Venous Blood Gas] Stat RT 11/28/23 19:09 Completed ECG Data Tracing #1: I reviewed this ECG and interpreted as documented below: Sinus tachycardia with a ventricular rate of [address] changes concerning for ischemia. Normal axis and intervals. ECG initial impression date: 11/28/23 ECG initial impression time: 20:02 Medical Decision Narrative: In summary, this patient is a 63-year-old female presenting to the Emergency Department for evaluation of unwitnessed fall with scalp laceration. Differential diagnoses considered include but are not limited to subdural hematoma, skull fracture, laceration, abrasion, polytrauma. I did note that the patient is also significantly tachycardic on exam with heart rate in the 130s. It appears to be regular sinus tachycardia on monitor. It looks like she has been tachycardic here in the past medical record review, however not to this degree. This could be result of infection, pain, anxiety, cardiac dysfunction, anemia, among others. Ruling out the most morbid conditions drove assessment. It should be noted patient's history includes vascular dementia which is not at goal therapy. This complicates all aspects of care by increasing patient's risk for morbidity. I reviewed patient's past medical records and noted previous evaluations for behavioral disturbance in the setting of dementia in the past. On 11/01/2023, it looks like she was diagnosed with a urinary tract infection. On exam, the patient is resting comfortably in bed in no acute distress. She is tachycardic to the 130s, but otherwise vitals are reassuring on cardiac telemetry. Workup included CT head as well as spines to evaluate for traumatic injury. I obtained CT PE and CT abdomen pelvis with IV contrast to evaluate for pathology that could cause worsening of the patient's mental status and tachycardia. Broad lab work including metabolic and cardiac workup was also obtained. He was given a bolus of IV fluids. EKG demonstrated sinus tachycardia without acute concerns for ischemia. I independently interpreted CT scans prior to the radiologist read and noted concerns for spine fractures but no obvious intracranial hemorrhage. Please see their read for final interpretation. Per radiology, she has an acute T10 fracture without significant height loss, but she also has an acute L4 fracture with 40% height loss and 40% canal compromise. Difficult to assess neuroexam given the patient's baseline dementia and poor cooperation. Labs were obtained that demonstrated mild leukocytosis. Patient also has a mildly elevated anion gap and mildly elevated AST. Attempt was made to obtain a cath urine, however patient was dry. Her brief was also dry at this time. There was nothing noted on bladder scan. Her tachycardia improved with fluid resuscitation. Given these things as well as her lab abnormalities, I feel she likely is dehydrated. She is given a second liter bolus of IV fluids with continued improvement in her tachycardia. She became agitated and combative, pulling at her IV, c-collar, and all of her monitor leads. Given this, she was placed in mittens and given 2 mg of IV Haldol. Patient's laceration was repaired on her scalp. She had a 2 cm irregular curvilinear laceration which was repaired with 3 natalee. This was after copious irrigation. Patient tolerated this well with no complications. Given her spine fractures with concern for canal compromise on CT, images were fractured [facility] and we called for consultation with spine. Patient does keep stating it hurts, but does not provide further history. For pain, she was given IV acetaminophen and IV toradol. We still have not been able to obtain a urinalysis at this time, patient has no significant amount of urine in her bladder on bladder scan. I had an interactive discussion with Dr. Alvarado in the transfer center as well as Dr. Naylor with spine who advised that they would like the patient transferred and evaluated at [facility] as a trauma with concern for her L4 spine fracture, as they would like to do further evaluation of this. I called patient's daughter, Prema, who is her guardian and advised her of this. She is agreeable to transfer. Given this, patient was transferred in stable condition to [facility] for further evaluation and management. <SUNITA Eaton - Last Filed: 11/28/23 23:31> Vital Signs: 11/28/23 18:56 11/28/23 19:30 11/28/23 19:42 Temperature 98.3 F Temperature Source Oral Pulse Rate 116 H 109 H Pulse Rate [Right Brachial] 133 H Respiratory Rate 20 15 16 Blood Pressure 126/77 Blood Pressure [Right Arm] 151/70 H Blood Pressure Mean 86 Blood Pressure Mean [Right Arm] 97 02 Sat by Pulse Oximetry 96 92 L 96 Oxygen Delivery Method Nasal Cannula Oxygen Flow Rate (LPM) 2 2 11/28/23 20:00 06/23/24 21:00 11/28/23 21:52 Temperature Temperature Source Pulse Rate 110 H 111 H 110 H Pulse Rate [Right Brachial] Respiratory Rate 16 20 19 Blood Pressure 149/84 H 119/69 152/77 H Blood Pressure [Right Arm] Blood Pressure Mean 97 85 103 Blood Pressure Mean [Right Arm] 02 Sat by Pulse Oximetry 96 99 94 L Oxygen Delivery Method Oxygen Flow Rate (LPM) 2 2 2 11/28/23 22:32 Temperature Temperature Source Pulse Rate 105 H Pulse Rate [Right Brachial] Respiratory Rate 18 Blood Pressure 131/87 Blood Pressure [Right Arm] Blood Pressure Mean 101 Blood Pressure Mean [Right Arm] 02 Sat by Pulse Oximetry 97 Oxygen Delivery Method Oxygen Flow Rate (LPM) 2 Lab Data Lab Results 11/28/23 18:57: WBC 12.2 H, RBC 4.25, Hgb 12.4, Hct 38.1, MCV 89.7, MCH 29.2, MCHC 32.6, RDW 14.6, Plt Count 386, MPV 8.5, Neut % (Auto) 83.9 H, Lymph % (Auto) 10.5, [place] % (Auto) 4.7, Eos % (Auto) 0.3, Baso % (Auto) 0.5, Neut # (Auto) 10.3 H, Lymph # (Auto) 1.3, [place] # (Auto) 0.6, Eos # (Auto) 0.0, Baso # (Auto) 0.1, Sodium 142, Potassium 3.9, Chloride 103, Carbon Dioxide 27, Anion Gap 15.9 H, BUN 10, Creatinine 0.60, Estimated Creat Clear 54, Estimated GFR 101, Est GFR ( Amer) 122, Glucose 134 H, Calcium 10.2, Total Bilirubin 0.5, AST 48 H, ALT 40, Alkaline Phosphatase 261 H, Troponin I < 0.01, NT-Pro-B Natriuret Pep 100, Total Protein 8.1, Albumin 4.4, Globulin 3.7 H, Albumin/Globulin Ratio 1.2, TSH 2.51, Thyroxine (T4) 10.7 11/28/23 19:09: VBG pH 7.45 H, VBG pCO2 39.4, VBG pO2 71.4 H, VBG HCO3 26.6, VBG Total CO2 27.8 H, VBG O2 Saturation 94.5 H, VBG Base Excess 2.5 H, VBG Lactic Acid 1.5 Orders (Tests/Meds): ED MEDICATIONS Discontinued Medications Generic Name Dose Route Start Last Admin Trade Name Cyril PRN Reason Stop Dose Admin Acetaminophen 1,000 mg 11/28/23 23:16 11/28/23 23:22 Acetaminophen 1,000mg/100ml Vial IV 11/28/23 23:17 1,000 mg ONCE ONE Administration Haloperidol Lactate 2 mg 11/28/23 21:55 11/28/23 21:59 Haloperidol Lactate 5 Mg/Ml Vial IV 11/28/23 21:56 2 mg ONCE ONE Administration Lactated Ringer's 1,000 mls @ 999 mls/hr 11/28/23 19:10 11/28/23 19:39 Lactated Ringer's 1000 Ml Bag IV 11/28/23 20:10 999 mls/hr .Q1H1M ONE Administration Lactated Ringer's 1,000 mls @ 999 mls/hr 11/28/23 21:12 11/28/23 21:53 Lactated Ringer's 1000 Ml Bag IV 11/28/23 22:12 999 mls/hr .Q1H1M ONE Administration Iopamidol 70 ml 11/28/23 20:51 11/28/23 20:52 Iopamidol-370 (76%);100ml Bottle IV 11/28/23 20:52 70 ml ONCE ONE Administration Ketorolac Tromethamine 15 mg 11/28/23 23:16 11/28/23 23:22 Ketorolac 30mg/Ml Vial IV 11/28/23 23:17 15 mg ONCE ONE Administration Sodium Chloride 40 ml 11/28/23 20:51 11/28/23 20:52 0.9 % Sodium Chloride 50 Ml Vial IV 11/28/23 20:52 40 ml ONCE ONE Administration Sodium Chloride 10 ml 11/28/23 20:51 11/28/23 20:52 Sodium Chloride 0.9% 10ml Syr (Rad Only) IV 11/28/23 20:52 10 ml ONCE ONE Administration Tetanus/Reduced Diphtheria/Acell Pertussis 0.5 ml 11/28/23 19:16 11/28/23 19:52 Tet/Diphth/Pert-Adult 0.5ml Syringe IM 11/28/23 19:17 0.5 ml .ONCE ONE Administration ORDERS Category Date Time Status CT abdomen pelvis w con Stat Cat Scan 11/28/23 19:[address] cervical spine wo con Stat Cat Scan 11/28/23 19:[address] head/brain wo con Stat Cat Scan 11/28/23 19:[address] lumbar spine wo con Stat Cat Scan 11/28/23 20:[address] thoracic spine wo con Stat Cat Scan 11/28/23 19:09 Completed CTA Chest [CT angio chest PE protocol] Stat Cat Scan 11/28/23 19:12 Completed BNP [NT Pro Brain Natriuretic Pep.] Stat Lab 11/28/23 18:57 Completed CBC w/Auto Diff [Complete Blood Count Auto Diff] Stat Lab 11/28/23 18:57 Completed CMP [Comprehensive Metabolic Panel] Stat Lab 11/28/23 18:57 Completed T4 (Thyroxine) Stat Lab 11/28/23 18:57 Completed TSH [Thyroid Stimulating Hormone] Stat Lab 11/28/23 18:57 Completed Trop I [Troponin I] Stat Lab 11/28/23 18:57 Completed Troponin I Q3H Lab 11/28/23 22:15 Ordered Troponin I Q3H Lab 11/29/23 01:15 Ordered UA [Urinalysis and Microscopic] Stat Lab 11/28/23 19:09 Ordered Urine Culture Stat Micro 11/28/23 19:09 Ordered VBG [Venous Blood Gas] Stat RT 11/28/23 19:09 Completed Procedures <Prema Wilde DO - Last Filed: 11/28/23 23:55> Laceration Laceration 1: Site: scalp Size (cm): 2 Description: irregular Depth: simple, single layer Pre-repair: wound explored and irrigated extensively Skin layer closed with: other ([place] x 3) Critical Care <Prema Wilde DO - Last Filed: 11/28/23 23:55> Critical Care Time Critical Care Time: No
[2023-11-28 19:34] LABS: Basophils # 0.1 K/mm3 (0-0.2); Basophils % 0.5 % (0.1-2.0); Eosinophils % 0.3 % (0.1-12.0); Hematocrit 38.1 % (37.0-47.0); Hemoglobin 12.4 g/dL (12.2-16.2); Lymphocytes # 1.3 K/mm3 (0.7-4.5); Lymphocytes % 10.5 % (10-50); Mean Corpuscular HGB Conc 32.6 g/dL (31.8-35.4); Mean Corpuscular Hemoglobin 29.2 pg (27.0-31.2); Mean Corpuscular Volume 89.7 fl (81-99); Mean Platelet Volume 8.5 fl (7.4-10.4); Monocytes # 0.6 K/mm3 (0.1-1.0); Monocytes % 4.7 % (1.7-9.3); Neutrophils # 10.3 K/mm3 (1.8-7.8); Neutrophils % 83.9 % (37.0-80.0); Platelet Count 386 K/mm3 (142-424); Red Blood Count 4.25 M/mm3 (4.20-5.40); Red Cell Distribution Width 14.6 % (11.5-17.5); White Blood Count 12.2 K/mm3 (4.8-10.8)
[2023-11-28] MEDS: LACTATED RINGERS 1000ML 1,000 ML 999 ML IV ×2 (19:39→21:53)
[2023-11-28 19:42] LABS: NT Pro Brain Natriuretic Pep. 100 pg/mL (0-125)
[2023-11-28 19:45] LABS: Troponin I < 0.01 ng/ml (0.00-0.034)
[2023-11-28 19:49] LABS: T4 (Thyroxine) 10.7 ug/dl (5.53-11.0)
[2023-11-28] MEDS: TET/DIPHTH/PERT-ADULT 0.5ML SYRINGE 0.5 ML IM (19:52)
[2023-11-28 20:00] LABS: Lactate Venous 1.5 mmol/L (0.4-2.0); VBG Base Excess 2.5 mmol/L (-2.4-2.3); VBG HCO3 26.6 mmol/L (23-30); VBG Oxygen Saturation 94.5 % (50-70); VBG PCO2 39.4 mmol/L (35-51); VBG PH 7.45 mmol/L (7.31-7.41); VBG PO2 71.4 mmol/L (28-40); VBG Total CO2 27.8 mmol/L (23-27)
[2023-11-28 20:02] LABS: Thyroid Stimulating Hormone 2.51 uIU/mL (0.465-4.68)
--- NOTE | 2023-11-28 20:35 | HMH.EDGENADL ---
Discharge Plan Disposition Chief Complaint: Fall Prescriptions Prescriptions: No Action atorvastatin 20 mg tablet 20 mg PO DAILY trazodone 50 mg tablet 50 mg PO HS donepezil 10 mg tablet 10 mg PO HS sertraline 100 mg tablet 100 mg PO DAILY olanzapine 10 mg tablet 10 mg PO BID acetaminophen 500 mg tablet 1,000 mg PO NEEDED MDD ' PRN (Reason: Pain) famotidine 20 mg tablet 20 mg PO DAILY lorazepam 2 mg tablet 2 mg PO NEEDED PRN (Reason: behavior) aspirin 81 mg tablet,chewable 81 mg PO DAILY folic acid 1 mg tablet 1 mg PO DAILY polyethylene glycol 3350 17 gram/dose powder 17 g PO DAILY memantine 10 mg tablet 10 mg PO BID cetirizine 10 mg tablet 10 mg PO DAILY sulfamethoxazole-trimethoprim [Bactrim DS] 800-160 mg tablet 1 tab PO BID 5 Days Qty: 10 0RF Referrals Follow up/Referrals: Provider,Referral, MD [Primary Care Provider] - See instructions Clinical Impressions Clinical Impression: Fall, Laceration of scalp, Dehydration, Compression fracture of L4 vertebra, Closed wedge compression fracture of T10 vertebra Discharge ED Provider: Prema Wilde General Adult HPI <SUNITA Eaton - Last Filed: 11/28/23 20:35> General Chief complaint: Fall Stated complaint: fall Time Seen by Provider: 11/28/23 18:59 Mode of Arrival: EMS Source of Information: EMS Limitations: Language Barrier Description of Symptoms (Recalled from ER Triage Doc. by RN): Pt presented to the ED for an unwitnessed fall. Pt does not speak much at baseline but does have 2 abrasion/ laceration areas to the back of the head. EMS said that pt is not on a blood thinner and has not c/o or acted like she has pain in any other area. When EMS got to pt, she was not wearing her oxygen that she is supposed to wear and O2 sats were in 70s and came up quickly to 90s on 2L. When asked if she has pain to her head she said no and has followed commands when asked to do things. Related Data Home Medications Medication Instructions Recorded Confirmed acetaminophen 500 mg tablet 1,000 mg PO NEEDED PRN Pain 10/30/23 10/30/23 aspirin 81 mg chewable tablet 81 mg PO DAILY 10/30/23 10/30/23 atorvastatin 20 mg tablet 20 mg PO DAILY 10/30/23 10/30/23 cetirizine 10 mg tablet 10 mg PO DAILY 10/30/23 10/30/23 donepezil 10 mg tablet 10 mg PO HS 10/30/23 10/30/23 famotidine 20 mg tablet 20 mg PO DAILY 10/30/23 10/30/23 folic acid 1 mg tablet 1 mg PO DAILY 10/30/23 10/30/23 lorazepam 2 mg tablet 2 mg PO NEEDED PRN behavior 10/30/23 10/30/23 memantine 10 mg tablet 10 mg PO BID 10/30/23 10/30/23 olanzapine 10 mg tablet 10 mg PO BID 10/30/23 10/30/23 polyethylene glycol 3350 17 17 g PO DAILY 10/30/23 10/30/23 gram/dose oral powder sertraline 100 mg tablet 100 mg PO DAILY 10/30/23 10/30/23 trazodone 50 mg tablet 50 mg PO HS 10/30/23 10/30/23 Previous Rx's Medication Instructions Recorded sulfamethoxazole 800 1 tab PO BID 5 days #10 tabs 11/01/23 mg-trimethoprim 160 mg tablet (Bactrim DS) Allergies Allergy/AdvReac Type Severity Reaction Status Date / Time cephalexin [From Keflex] Allergy Verified 10/30/23 07:37 risperidone [From Risperdal] Allergy Verified 10/30/23 07:37 [facility] <SUNITA Eaton - Last Filed: 11/28/23 20:35> [facility] Disclaimer: The information contained in this section may have been updated after the patient was seen, as this information can be updated by other users. Medical History Personal history of traumatic brain injury Tremor, unspecified Age-related osteoporosis without current pathological fracture Gastro-esophageal reflux disease without esophagitis Vascular dementia, unspecified severity, without behavioral disturbance, psychotic disturbance, mood disturbance, and anxiety Vascular dementia, unspecified severity, with other behavioral disturbance Dementia with behavioral disturbance Major depressive disorder, single episode, unspecified Unspecified mood [affective] disorder Other seasonal allergic rhinitis Alcohol abuse Hyperlipemia Insomnia COPD (chronic obstructive pulmonary disease) Social History Smoking Status: Never smoker alcohol intake: former current occupational status: other Travel in the last 8 weeks: None <SUNITA Eaton - Last Filed: 11/28/23 20:35> ROS Obtained: Yes Systems reviewed as appropriate & no additional complaints except as documented Physical Exam <SUNITA Eaton - Last Filed: 11/28/23 20:35> General General appearance: alert and in no apparent distress Head Head exam: atraumatic and normal inspection Eye Eye exam: Present normal appearance, PERRL and EOMI ENT ENT exam: Present normal exam, normal oropharynx and mucous membranes moist Neck Neck exam: Present normal inspection, full ROM and trachea midline; Absent lymphadenopathy Chest Chest inspection: Present normal inspection and symmetric chest wall rise Respiratory Respiratory exam: Present normal lung sounds bilaterally; Absent accessory muscle use Cardiovascular Cardiovascular exam: Present regular rate, normal rhythm, normal heart sounds, +S1 and +S2 Abdominal Exam Abdominal exam: Present soft and normal bowel sounds; Absent tenderness, guarding or rebound Extremities Exam Extremities exam: Present normal inspection and full ROM Neurological Exam Neurological exam: Present alert, oriented X3 and CN II-XII intact Psychiatric Psychiatric exam: Present normal affect and normal mood Skin Skin exam: Present warm, dry and normal color Lymphatic Lymphatic Findings: no adenopathy Medical Decision Making <SUNITA Eaton - Last Filed: 11/28/23 20:35> Vital Signs: 11/28/23 18:56 11/28/23 19:30 11/28/23 19:42 Temperature 98.3 F Temperature Source Oral Pulse Rate 116 H 109 H Pulse Rate [Right Brachial] 133 H Respiratory Rate 20 15 16 Blood Pressure 126/77 Blood Pressure [Right Arm] 151/70 H Blood Pressure Mean 86 Blood Pressure Mean [Right Arm] 97 02 Sat by Pulse Oximetry 96 92 L 96 Oxygen Delivery Method Nasal Cannula Oxygen Flow Rate (LPM) 2 2 11/28/23 20:00 11/28/23 21:00 11/28/23 21:52 Temperature Temperature Source Pulse Rate 110 H 111 H 110 H Pulse Rate [Right Brachial] Respiratory Rate 16 20 19 Blood Pressure 149/84 H 119/69 152/77 H Blood Pressure [Right Arm] Blood Pressure Mean 97 85 103 Blood Pressure Mean [Right Arm] 02 Sat by Pulse Oximetry 96 99 94 L Oxygen Delivery Method Oxygen Flow Rate (LPM) 2 2 2 11/28/23 22:32 Temperature Temperature Source Pulse Rate 105 H Pulse Rate [Right Brachial] Respiratory Rate 18 Blood Pressure 131/87 Blood Pressure [Right Arm] Blood Pressure Mean 101 Blood Pressure Mean [Right Arm] 02 Sat by Pulse Oximetry 97 Oxygen Delivery Method Oxygen Flow Rate (LPM) 2 Lab Data Lab Results 11/28/23 18:57: WBC 12.2 H, RBC 4.25, Hgb 12.4, Hct 38.1, MCV 89.7, MCH 29.2, MCHC 32.6, RDW 14.6, Plt Count 386, MPV 8.5, Neut % (Auto) 83.9 H, Lymph % (Auto) 10.5, Collier % (Auto) 4.7, Eos % (Auto) 0.3, Baso % (Auto) 0.5, Neut # (Auto) 10.3 H, Lymph # (Auto) 1.3, Collier # (Auto) 0.6, Eos # (Auto) 0.0, Baso # (Auto) 0.1, Sodium 142, Potassium 3.9, Chloride 103, Carbon Dioxide 27, Anion Gap 15.9 H, BUN 10, Creatinine 0.60, Estimated Creat Clear 54, Estimated GFR 101, Est GFR ( Amer) 122, Glucose 134 H, Calcium 10.2, Total Bilirubin 0.5, AST 48 H, ALT 40, Alkaline Phosphatase 261 H, Troponin I < 0.01, NT-Pro-B Natriuret Pep 100, Total Protein 8.1, Albumin 4.4, Globulin 3.7 H, Albumin/Globulin Ratio 1.2, TSH 2.51, Thyroxine (T4) 10.7 11/28/23 19:09: VBG pH 7.45 H, VBG pCO2 39.4, VBG pO2 71.4 H, VBG HCO3 26.6, VBG Total CO2 27.8 H, VBG O2 Saturation 94.5 H, VBG Base Excess 2.5 H, VBG Lactic Acid 1.5 11/28/23 18:57 11/28/23 18:57 Orders (Tests/Meds): ED MEDICATIONS Discontinued Medications Generic Name Dose Route Start Last Admin Trade Name Freq PRN Reason Stop Dose Admin Haloperidol Lactate 2 mg 11/28/23 21:55 11/28/23 21:59 Haloperidol Lactate 5 Mg/Ml Vial IV 11/28/23 21:56 2 mg ONCE ONE Administration Lactated Ringer's 1,000 mls @ 999 mls/hr 11/28/23 19:10 11/28/23 19:39 Lactated Ringer's 1000 Ml Bag IV 11/28/23 20:10 999 mls/hr .Q1H1M ONE Administration Lactated Ringer's 1,000 mls @ 999 mls/hr 11/28/23 21:12 11/28/23 21:53 Lactated Ringer's 1000 Ml Bag IV 11/28/23 22:12 999 mls/hr .Q1H1M ONE Administration Iopamidol 70 ml 11/28/23 20:51 11/28/23 20:52 Iopamidol-370 (76%);100ml Bottle IV 11/28/23 20:52 70 ml ONCE ONE Administration Sodium Chloride 40 ml 11/28/23 20:51 11/28/23 20:52 0.9 % Sodium Chloride 50 Ml Vial IV 11/28/23 20:52 40 ml ONCE ONE Administration Sodium Chloride 10 ml 11/28/23 20:51 11/28/23 20:52 Sodium Chloride 0.9% 10ml Syr (Rad Only) IV 11/28/23 20:52 10 ml ONCE ONE Administration Tetanus/Reduced Diphtheria/Acell Pertussis 0.5 ml 11/28/23 19:16 11/28/23 19:52 Tet/Diphth/Pert-Adult 0.5ml Syringe IM 11/28/23 19:17 0.5 ml .ONCE ONE Administration ORDERS Category Date Time Status CT abdomen pelvis w con Stat Cat Scan 11/28/23 19:[address] cervical spine wo con Stat Cat Scan 11/28/23 19:[address] head/brain wo con Stat Cat Scan 11/28/23 19:[address] lumbar spine wo con Stat Cat Scan 11/28/23 20:[address] thoracic spine wo con Stat Cat Scan 11/28/23 19:09 Completed CTA Chest [CT angio chest PE protocol] Stat Cat Scan 11/28/23 19:12 Completed BNP [NT Pro Brain Natriuretic Pep.] Stat Lab 11/28/23 18:57 Completed CBC w/Auto Diff [Complete Blood Count Auto Diff] Stat Lab 11/28/23 18:57 Completed CMP [Comprehensive Metabolic Panel] Stat Lab 06/23/24 18:57 Completed T4 (Thyroxine) Stat Lab 11/28/23 18:57 Completed TSH [Thyroid Stimulating Hormone] Stat Lab 11/28/23 18:57 Completed Trop I [Troponin I] Stat Lab 11/28/23 18:57 Completed Troponin I Q3H Lab 11/28/23 22:15 Ordered Troponin I Q3H Lab 11/29/23 01:15 Ordered UA [Urinalysis and Microscopic] Stat Lab 11/28/23 19:09 Ordered Urine Culture Stat Micro 11/28/23 19:09 Ordered VBG [Venous Blood Gas] Stat RT 11/28/23 19:09 Completed Medical Decision Narrative: In summary patient is a [age, sex] who presents to the emergency department for evaluation of [complaint]. Patient is [hemodynamically stable/unstable] upon arrival, [febrile/afebrile]. [Unremarkable physical exam, nonfocal exam versus focal remarkable exam]. Differential diagnosis includes [DDx]. Initial workup will be conducted with [hematologic labs, imaging, respiratory swab, describe workup]. Initial interventions include [crystalloid bolus, medications, p.o. challenge, etc.] initial workup reviewed by me [hematologic labs are remarkable for... Imaging remarkable for... Urinalysis remarkable for]. Upon repeat evaluation [patient had acceptable resolution of symptoms, had persistent pain for which additional interventions were conducted (describe interventions), tolerated p.o., was ambulatory, etc.]. Given this [patient is appropriate for discharge at this time and will be discharged with a prescription for... The case was discussed with hospital medicine regarding management and they will admit the patient their service for continued evaluation at this time... Etc.] Places where you can increase complexity: I informally interpreted the patient's chest x-ray or CT read and is remarkable for... Documenting what the fashion show director shows with rate and rhythm Consideration of test but deferring. Ex: I considered chest x-ray on this patient however given that they have no oxygen requirement and are clear to auscultation all lung vega will be deferred. Social determinants of health: Given that patient is undomiciled increases complexity. Given that patient has polysubstance abuse compounds all aspects of care <Prema Wilde, DO - Last Filed: 11/28/23 23:05> Vital Signs: 11/28/23 18:56 11/28/23 19:30 11/28/23 19:42 Temperature 98.3 F Temperature Source Oral Pulse Rate 116 H 109 H Pulse Rate [Right Brachial] 133 H Respiratory Rate 20 15 16 Blood Pressure 126/77 Blood Pressure [Right Arm] 151/70 H Blood Pressure Mean 86 Blood Pressure Mean [Right Arm] 97 02 Sat by Pulse Oximetry 96 92 L 96 Oxygen Delivery Method Nasal Cannula Oxygen Flow Rate (LPM) 2 2 11/28/23 20:00 11/28/23 21:00 11/28/23 21:52 Temperature Temperature Source Pulse Rate 110 H 111 H 110 H Pulse Rate [Right Brachial] Respiratory Rate 16 20 19 Blood Pressure 149/84 H 119/69 152/77 H Blood Pressure [Right Arm] Blood Pressure Mean 97 85 103 Blood Pressure Mean [Right Arm] 02 Sat by Pulse Oximetry 96 99 94 L Oxygen Delivery Method Oxygen Flow Rate (LPM) 2 2 2 11/28/23 22:32 Temperature Temperature Source Pulse Rate 105 H Pulse Rate [Right Brachial] Respiratory Rate 18 Blood Pressure 131/87 Blood Pressure [Right Arm] Blood Pressure Mean 101 Blood Pressure Mean [Right Arm] 02 Sat by Pulse Oximetry 97 Oxygen Delivery Method Oxygen Flow Rate (LPM) 2 Lab Data Lab Results 11/28/23 18:57: WBC 12.2 H, RBC 4.25, Hgb 12.4, Hct 38.1, MCV 89.7, MCH 29.2, MCHC 32.6, RDW 14.6, Plt Count 386, MPV 8.5, Neut % (Auto) 83.9 H, Lymph % (Auto) 10.5, Collier % (Auto) 4.7, Eos % (Auto) 0.3, Baso % (Auto) 0.5, Neut # (Auto) 10.3 H, Lymph # (Auto) 1.3, Collier # (Auto) 0.6, Eos # (Auto) 0.0, Baso # (Auto) 0.1, Sodium 142, Potassium 3.9, Chloride 103, Carbon Dioxide 27, Anion Gap 15.9 H, BUN 10, Creatinine 0.60, Estimated Creat Clear 54, Estimated GFR 101, Est GFR ( Amer) 122, Glucose 134 H, Calcium 10.2, Total Bilirubin 0.5, AST 48 H, ALT 40, Alkaline Phosphatase 261 H, Troponin I < 0.01, NT-Pro-B Natriuret Pep 100, Total Protein 8.1, Albumin 4.4, Globulin 3.7 H, Albumin/Globulin Ratio 1.2, TSH 2.51, Thyroxine (T4) 10.7 11/28/23 19:09: VBG pH 7.45 H, VBG pCO2 39.4, VBG pO2 71.4 H, VBG HCO3 26.6, VBG Total CO2 27.8 H, VBG O2 Saturation 94.5 H, VBG Base Excess 2.5 H, VBG Lactic Acid 1.5 Orders (Tests/Meds): ED MEDICATIONS Discontinued Medications Generic Name Dose Route Start Last Admin Trade Name Freq PRN Reason Stop Dose Admin Haloperidol Lactate 2 mg 11/28/23 21:55 11/28/23 21:59 Haloperidol Lactate 5 Mg/Ml Vial IV 11/28/23 21:56 2 mg ONCE ONE Administration Lactated Ringer's 1,000 mls @ 999 mls/hr 11/28/23 19:10 11/28/23 19:39 Lactated Ringer's 1000 Ml Bag IV 11/28/23 20:10 999 mls/hr .Q1H1M ONE Administration Lactated Ringer's 1,000 mls @ 999 mls/hr 11/28/23 21:12 11/28/23 21:53 Lactated Ringer's 1000 Ml Bag IV 11/28/23 22:12 999 mls/hr .Q1H1M ONE Administration Iopamidol 70 ml 11/28/23 20:51 11/28/23 20:52 Iopamidol-370 (76%);100ml Bottle IV 11/28/23 20:52 70 ml ONCE ONE Administration Sodium Chloride 40 ml 11/28/23 20:51 11/28/23 20:52 0.9 % Sodium Chloride 50 Ml Vial IV 11/28/23 20:52 40 ml ONCE ONE Administration Sodium Chloride 10 ml 11/28/23 20:51 11/28/23 20:52 Sodium Chloride 0.9% 10ml Syr (Rad Only) IV 11/28/23 20:52 10 ml ONCE ONE Administration Tetanus/Reduced Diphtheria/Acell Pertussis 0.5 ml 11/28/23 19:16 11/28/23 19:52 Tet/Diphth/Pert-Adult 0.5ml Syringe IM 11/28/23 19:17 0.5 ml .ONCE ONE Administration ORDERS Category Date Time Status CT abdomen pelvis w con Stat Cat Scan 11/28/23 19:[address] cervical spine wo con Stat Cat Scan 11/28/23 19:[address] head/brain wo con Stat Cat Scan 11/28/23 19:[address] lumbar spine wo con Stat Cat Scan 11/28/23 20:[address] thoracic spine wo con Stat Cat Scan 11/28/23 19:09 Completed CTA Chest [CT angio chest PE protocol] Stat Cat Scan 11/28/23 19:12 Completed BNP [NT Pro Brain Natriuretic Pep.] Stat Lab 11/28/23 18:57 Completed CBC w/Auto Diff [Complete Blood Count Auto Diff] Stat Lab 11/28/23 18:57 Completed CMP [Comprehensive Metabolic Panel] Stat Lab 11/28/23 18:57 Completed T4 (Thyroxine) Stat Lab 11/28/23 18:57 Completed TSH [Thyroid Stimulating Hormone] Stat Lab 11/28/23 18:57 Completed Trop I [Troponin I] Stat Lab 11/28/23 18:57 Completed Troponin I Q3H Lab 11/28/23 22:15 Ordered Troponin I Q3H Lab 11/29/23 01:15 Ordered UA [Urinalysis and Microscopic] Stat Lab 11/28/23 19:09 Ordered Urine Culture Stat Micro 11/28/23 19:09 Ordered VBG [Venous Blood Gas] Stat RT 11/28/23 19:09 Completed ECG Data Tracing #1: I reviewed this ECG and interpreted as documented below: Sinus tachycardia with a ventricular rate of [address] changes concerning for ischemia. Normal axis and intervals. ECG initial impression date: 11/28/23 ECG initial impression time: 20:11 Procedures <Prema Wilde, - Last Filed: 11/28/23 23:05> Risk/Benefits of Procedure(s) Were Explained: Yes Laceration Laceration 1: Site: scalp Size (cm): 2 Description: irregular Depth: simple, single layer Pre-repair: wound explored, irrigated extensively and deep structures intact Skin layer closed with: other (natalee x 3)
--- NOTE | 2023-11-28 20:36 | CT_ITS ---
PROCEDURE INFORMATION: Exam: CT Lumbar Spine Without Contrast Exam date and time: 11/28/2023 8:27 PM Age: 63 years old Clinical indication: Injury or trauma; Fall; Sprain or strain, lumbar ligaments; Additional info: Fall, AMS, dementia TECHNIQUE: Imaging protocol: Computed tomography of the lumbar spine without contrast. Radiation optimization: All CT scans at this facility use at least one of these dose optimization techniques: automated exposure control; mA and/or kV adjustment per patient size (includes targeted exams where dose is matched to clinical indication); or iterative reconstruction. COMPARISON: CT THORACIC SPINE WO CON 11/28/2023 8:24 PM FINDINGS: Bones/joints: Acute fracture of L4 with 40% loss of vertebral body height and 40% canal compromise. Stable chronic fractures of L3, L2, T11.Normal alignment. No significant disc bulge or herniation. No severe spinal canal stenosis. No significant neural foraminal narrowing. Soft tissues: Unremarkable. IMPRESSION: Acute fracture of L4 with 40% loss of vertebral body height and 40% canal compromise.
[2023-11-28] MEDS: SODIUM CHLORIDE 0.9% 10ML SYR (RAD ONLY) 10 ML IV (20:52)
[2023-11-28] MEDS: IOPAMIDOL-370 (76%);100ML BOTTLE 70 ML IV (20:52)
[2023-11-28] MEDS: 0.9 % SODIUM CHLORIDE 50 ML VIAL 40 ML IV (20:52)
[2023-11-28] MEDS: HALOPERIDOL LACTATE 5 MG/ML VIAL 2 MG IV (21:59)
--- NOTE | 2023-11-28 23:19 | PC.NURSE ---
Attempted in and out cath for UA per MD and only approximately 5 mL of urine came out; pt bladder scanned and only showed 7 mL with brief slightly wet. Purwick placed on pt for attempt to collect urine specimen due to incontinence. MD aware.
[2023-11-28] MEDS: KETOROLAC 30MG/ML VIAL 15 MG IV (23:22)
[2023-11-28] MEDS: ACETAMINOPHEN 1,000MG/100ML VIAL 1000 MG IV (23:22)
--- NOTE | 2023-11-29 00:01 | PC.NURSE ---
Report given to Millie, Charge Nurse @ [facility]
[2023-11-29 00:17] LABS: Microscopic, Urine URINE MICROSCOPIC (MICROSCOPIC)
[2023-11-29 00:33] VITALS: BP 156/84; PULSE 113; RESP 18; TEMP 36.9; O2SAT 97
[2023-11-29 00:35] LABS: Appearance,Urine CLEAR (Clear); Bilirubin,Urine Negative (Negative); Blood, Urine Negative (Negative); Color,Urine YELLOW (Yellow); Glucose,Urine (UA) Negative (Negative); Ketones,Urine Negative (Negative); Leukocyte Esterase,Urine Negative (Negative); Nitrate,Urine Negative (Negative); PH,Urine 7.5 (5.0-8.5); Protein,Urine Negative (Negative); Urobilinogen,Urine 0.2 EU/dl (0.2)
[2023-11-29 01:17] LABS: Bacteria,Urine Trace /lpf; Squamous Epithelial Cell,Urine Occasional #/hpf (0-5); WBC,Urine Occasional #/hpf (0-3)
--- NOTE | 2023-11-30 10:30 | PC.NURSE ---
urine prelim faxed to [phone] where pt was transferred
--- NOTE | 2023-12-01 08:47 | PC.NURSE ---
UPDATED URINE CULTURE FAXED TO [facility] WHERE PT WAS TRANSFERRED. [phone]
== END 2023-11-29 00:35 | disposition short-term general hospital (02) ==
PROVIDERS: Emergency Provider Emergency Medicine
DX: S32.040A Wedge compression fracture of fourth lumbar vertebra, initial encounter for closed fracture (principal); S22.070A Wedge compression fracture of T9-T10 vertebra, initial encounter for closed fracture; S01.01XA Laceration without foreign body of scalp, initial encounter; E86.0 Dehydration; B96.29 Other Escherichia coli [E. coli] as the cause of diseases classified elsewhere; J96.11 Chronic respiratory failure with hypoxia; K21.9 Gastro-esophageal reflux disease without esophagitis; E78.5 Hyperlipidemia, unspecified; F01.511 Vascular dementia, unspecified severity, with agitation; W19.XXXA Unspecified fall, initial encounter; Z23 Encounter for immunization
CPT/HCPCS: 12001; 70450; 71275; 72125; 72128; 72131; 74177; 80050; 80053; 81001; 82803; 83880; 84436; 84443; 84484; 85025; 87086; 87088; 87186; 90471; 90715; 93005; 96361; 96374; 96375; 99291; J0131; J1630; J1885; J7120; Q9967

== ENCOUNTER 2023-12-09 09:53 | Emergency (ER) | payer MEDICAID, SELFPAY ==
--- NOTE | 2023-12-09 09:48 | PC.NURSE ---
dr flores at bedside
--- NOTE | 2023-12-09 09:52 | CT_ITS ---
PROCEDURE INFORMATION: Exam: CT Cervical Spine Without Contrast Exam date and time: 12/09/2023 10:18 AM Age: 63 years old Clinical indication: Injury or trauma; Fall; Blunt trauma; Additional info: Fall, dementia, recent L spine fracture. TECHNIQUE: Imaging protocol: Computed tomography of the cervical spine without contrast. Radiation optimization: All CT scans at this facility use at least one of these dose optimization techniques: automated exposure control; mA and/or kV adjustment per patient size (includes targeted exams where dose is matched to clinical indication); or iterative reconstruction. COMPARISON: CT CERVICAL SPINE WO CON 12/09/2023 10:18 AM FINDINGS: Bones: Generalized osteopenia. Cervical spondylosis with multilevel disc degeneration. Chronic compression fracture deformity C7 and T1. Multilevel hypertrophic facet changes stable. Lungs: Changes of interstitial lung disease again partially visualized. Soft tissues: Unremarkable. IMPRESSION: No evidence of acute osseous injury.
--- NOTE | 2023-12-09 09:52 | CT_ITS ---
PROCEDURE INFORMATION: Exam: CT Lumbar Spine Without Contrast Exam date and time: 12/09/2023 10:26 AM Age: 63 years old Clinical indication: Injury or trauma; Fall; Blunt trauma (contusions or hematomas); Additional info: Fall, dementia, recent L spine fracture. TECHNIQUE: Imaging protocol: Computed tomography of the lumbar spine without contrast. Radiation optimization: All CT scans at this facility use at least one of these dose optimization techniques: automated exposure control; mA and/or kV adjustment per patient size (includes targeted exams where dose is matched to clinical indication); or iterative reconstruction. COMPARISON: CT LUMBAR SPINE WO CON 12/09/2023 10:26 AM FINDINGS: Bones/joints: The bones are osteopenic. There are unchanged compression deformities in multiple lumbar levels most notably L2, L3 and L4 as well as upper and lower endplate Schmorl's nodes at T11. Retropulsion of bone and spondylotic change cause canal narrowing multiple levels worst at L4-L5. There is a 7 degree dextroconvex curvature lumbar spine centered at L2. At L1-L2 there is disc bulging and facet arthropathy causing mild canal and neural foraminal narrowing. At L2-L3 there is disc osteophyte with ligamentous thickening and facet arthropathy cause [id number] canal narrowing. At L3-L4 there is a broad-based disc bulge with ligamentous thickening and facet arthropathy causing moderate canal and neural foraminal narrowing. At L4-L5 there is a broad-based disc bulge ligament thickening and facet arthropathy causing moderate to severe canal narrowing and severe neural foraminal stenosis. At L5-S1 there is disc bulging with facet arthropathy and ligamentous thickening causing mild to moderate canal and neural foraminal narrowing. Soft tissues: Unremarkable. IMPRESSION: Lumbar spondylosis as described. Unchanged multiple compression deformities.
--- NOTE | 2023-12-09 09:52 | CT_ITS ---
PROCEDURE INFORMATION: Exam: CT Thoracic Spine Without Contrast Exam date and time: 12/09/2023 10:21 AM Age: 63 years old Clinical indication: Injury or trauma; Fall; Blunt trauma (contusions or hematomas); Additional info: Fall, dementia, recent L spine fracture. TECHNIQUE: Imaging protocol: Computed tomography of the thoracic spine without contrast. Radiation optimization: All CT scans at this facility use at least one of these dose optimization techniques: automated exposure control; mA and/or kV adjustment per patient size (includes targeted exams where dose is matched to clinical indication); or iterative reconstruction. COMPARISON: CT THORACIC SPINE WO CON 11/28/2023 8:24 PM FINDINGS: Bones/joints: The bones are osteopenic. There is mild wedge compression of T1, space T7 and T8 as well as the upper T11 endplate and upper and lower pole endplate Schmorl's nodes at T12. Canal narrowing is noted at T11-12 due to retropulsion of bone and disc osteophyte and there is neural foraminal narrowing at T10-11 and T11-12 primarily due to facet arthropathy. There are chronic fractures of the right lateral 3rd through 5th ribs an age-indeterminate deformity of the anterior left 3rd, 4th and 5th ribs. Soft tissues: Unremarkable. Lymph nodes: Calcific mediastinal lymphadenopathies incidentally noted. IMPRESSION: Unchanged age-indeterminate thoracic compression deformities.
--- NOTE | 2023-12-09 09:52 | CT_ITS ---
PROCEDURE INFORMATION: Exam: CT Pelvis Without Contrast; Skeletal Exam date and time: 12/09/2023 10:29 AM Age: 63 years old Clinical indication: Injury or trauma; Fall; Blunt trauma (contusions or hematomas); Does not apply; Pelvic region; Additional info: Fall, dementia, recent L spine fracture. TECHNIQUE: Imaging protocol: Computed tomography of the pelvis without contrast. Exam focused on the skeleton. Radiation optimization: All CT scans at this facility use at least one of these dose optimization techniques: automated exposure control; mA and/or kV adjustment per patient size (includes targeted exams where dose is matched to clinical indication); or iterative reconstruction. COMPARISON: CT BONY PELVIS 12/09/2023 10:29 AM FINDINGS: Bones/joints: The bones are osteopenic which limits the sensitivity of CT. There is no obvious acute displaced pelvic fracture. There is a densely sclerotic cortically based lesion in the left lesser trochanter which is indeterminate. There is comminuted L4 compression unchanged from the prior CT of the abdomen and pelvis. Please correlate with report for CT of the lumbar spine for more complete description. Soft tissues: Unremarkable. IMPRESSION: No evidence of acute pelvic fracture. Osteopenia limits assessment. If there remains clinical suspicion for occult nondisplaced pelvic fracture, consider noncontrast MRI of the pelvis to further assess.
--- NOTE | 2023-12-09 09:52 | CT_ITS ---
PROCEDURE INFORMATION: Exam: CT Head Without Contrast Exam date and time: 12/09/2023 10:18 AM Age: 63 years old Clinical indication: Injury or trauma; Fall; Blunt trauma (contusions or hematomas); Additional info: Unwitness fall, dementia TECHNIQUE: Imaging protocol: Computed tomography of the head without contrast. Radiation optimization: All CT scans at this facility use at least one of these dose optimization techniques: automated exposure control; mA and/or kV adjustment per patient size (includes targeted exams where dose is matched to clinical indication); or iterative reconstruction. COMPARISON: CT HEAD/BRAIN WO CON 12/09/2023 10:18 AM FINDINGS: Brain: No evidence of acute territorial infarct or cerebral edema. Mild prominence of the cortical sulci consistent with age-appropriate intracerebral volume loss. Periventricular white matter tract changes consistent with microvascular disease. No mass effect or midline shift. Cerebral ventricles: No ventriculomegaly. Paranasal sinuses: Visualized sinuses are unremarkable. No fluid levels. Mastoid air cells: Visualized mastoid air cells are well aerated. Bones: Unremarkable. No acute fracture. Soft tissues: Unremarkable. IMPRESSION: No evidence of acute intracranial abnormality.
[2023-12-09 09:53] VITALS: BP 134/83; PULSE 107; RESP 15; TEMP 36.9; O2SAT 94; BMI 23.8
--- NOTE | 2023-12-09 09:54 | ED_ITS ---
Discharge Plan Disposition Patient Disposition: Home, Self-Care Chief Complaint: Fall Prescriptions Prescriptions: No Action atorvastatin 20 mg tablet 20 mg PO DAILY trazodone 50 mg tablet 50 mg PO HS donepezil 10 mg tablet 10 mg PO HS sertraline 100 mg tablet 100 mg PO DAILY olanzapine 10 mg tablet 10 mg PO BID acetaminophen 500 mg tablet 1,000 mg PO NEEDED MDD ' PRN (Reason: Pain) famotidine 20 mg tablet 20 mg PO DAILY lorazepam 2 mg tablet 2 mg PO NEEDED PRN (Reason: behavior) aspirin 81 mg tablet,chewable 81 mg PO DAILY folic acid 1 mg tablet 1 mg PO DAILY polyethylene glycol 3350 17 gram/dose powder 17 g PO DAILY memantine 10 mg tablet 10 mg PO BID cetirizine 10 mg tablet 10 mg PO DAILY sulfamethoxazole-trimethoprim [Bactrim DS] 800-160 mg tablet 1 tab PO BID 5 Days Qty: 10 0RF Referrals Follow up/Referrals: Td Monet MD [Primary Care Provider] - See instructions Activity Restrictions/Add. Instructions Additional Instructions/Restrictions: At this time it was felt you are safe to be discharged home. If new or worsening symptoms please do not hesitate to return the emergency department. Clinical Impressions Clinical Impression: Fall, Back pain Discharge ED Provider: Manfred Charles [facility] Adult HPI General Chief complaint: Fall Stated complaint: fall Time Seen by Provider: 12/09/23 09:54 History of Present Illness HPI narrative: Patient is a 63-year-old female past medical history of vascular dementia and intermittently verbal, traumatic brain injury, chronic tachycardia, recent compression fracture of T10 and L4 who presents emergency department as a transfer from retirement for evaluation of traumatic injury sustained in a unwitnessed fall. Patient was found next to her bed, unknown elevation this morning conscious. She was complaining of low back pain around her previous f racture site, unknown if worse than normal and they transferred here here for continued evaluation. Patient is not on anticoagulation per chart review. Upon arrival she is complaining of low back pain however is a extremely difficult historian. Per chart review of patient's [facility] records patient was admitted for an L4 fracture, patient was cleared by orthopedics with a stable injury and was okay t o mobilize with no lifting greater than 10 pounds. Was mobilizing with assistance at bedside and was deemed appropriate for discharge back to long-term care facility by trauma surgery. Patient was to follow-up in early January with orthopedic surgery. Related Data Home Medications Medication Instructions Recorded Confirmed acetaminophen 500 mg tablet 1,000 mg PO NEEDED PRN Pain 10/30/23 10/30/23 aspirin 81 mg chewable tablet 81 mg PO DAILY 10/30/23 10/30/23 atorvastatin 20 mg tablet 20 mg PO DAILY 10/30/23 10/30/23 cetirizine 10 mg tablet 10 mg PO DAILY 10/30/23 10/30/23 donepezil 10 mg tablet 10 mg PO HS 10/30/23 10/30/23 famotidine 20 mg tablet 20 mg PO DAILY 10/30/23 10/30/23 folic acid 1 mg tablet 1 mg PO DAILY 10/30/23 10/30/23 lorazepam 2 mg tablet 2 mg PO NEEDED PRN behavior 10/30/23 10/30/23 memantine 10 mg tablet 10 mg PO BID 10/30/23 10/30/23 olanzapine 10 mg tablet 10 mg PO BID 10/30/23 10/30/23 polyethylene glycol 3350 17 17 g PO DAILY 10/30/23 10/30/23 gram/dose oral powder sertraline 100 mg tablet 100 mg PO DAILY 10/30/23 10/30/23 trazodone 50 mg tablet 50 mg PO HS 10/30/23 10/30/23 Previous Rx's Medication Instructions Recorded sulfamethoxazole 800 1 tab PO BID 5 days #10 tabs 11/01/23 mg-trimethoprim 160 mg tablet (Bactrim DS) Allergies Allergy/AdvReac Type Severity Reaction Status Date / Time cephalexin [From Keflex] Allergy Verified 10/30/23 07:37 risperidone [From Risperdal] Allergy Verified 10/30/23 07:37 [facility] Disclaimer: The information contained in this section may have been updated after the patient was seen, as this information can be updated by other users. Medical History Personal history of traumatic brain injury Tremor, unspecified Age-related osteoporosis without current pathological fracture Gastro-esophageal reflux disease without esophagitis Vascular dementia, unspecified severity, without behavioral disturbance, psychotic disturbance, mood disturbance, and anxiety Vascular dementia, unspecified severity, with other behavioral disturbance Dementia with behavioral disturbance Major depressive disorder, single episode, unspecified Unspecified mood [affective] disorder Other seasonal allergic rhinitis Alcohol abuse Hyperlipemia Insomnia COPD (chronic obstructive pulmonary disease) Social History Smoking Status: Never smoker alcohol intake: former current occupational status: other Travel in the last 8 weeks: None ROS Obtained: Yes Systems reviewed as appropriate & no additional complaints except as documented Physical Exam General General appearance: alert and in no apparent distress Head Head exam: atraumatic and normocephalic Eye Eye exam: Present PERRL ENT ENT exam: Present mucous membranes moist Neck Neck exam: Present normal inspection Chest Chest inspection: Present normal inspection and symmetric chest wall rise Respiratory Respiratory exam: Absent respiratory distress Cardiovascular Cardiovascular exam: Present normal rhythm and tachycardia Abdominal Exam Abdominal exam: Present soft; Absent tenderness Extremities Exam Extremities exam: Present normal inspection and other (Nontender bilateral upper and lower extremities. 4 out of 5 strength left lower extremity, 5 out of 5 strength right lower extremity.) Neurological Exam Neurological exam: Present alert and CN II-XII intact Psychiatric Psychiatric exam: Present normal affect Skin Skin exam: Present warm and dry Medical Decision Making Isreal Inquiry Pt receiving controlled substance: No Vital Signs: 12/09/23 09:53 12/09/23 11:00 Temperature 98.5 F Temperature Source Oral Pulse Rate 93 H Pulse Rate [Right] 107 H Respiratory Rate 15 Blood Pressure 124/69 Blood Pressure [Right Arm] 134/83 Blood Pressure Mean [Right Arm] 100 Blood Pressure Source [Right Arm] Automatic Cuff 02 Sat by Pulse Oximetry 94 L 93 L Oxygen Delivery Method Room Air Orders (Tests/Meds): ED MEDICATIONS Discontinued Medications Generic Name Dose Route Start Last Admin Trade Name Cyril PRN Reason Stop Dose Admin Acetaminophen 1,000 mg 12/09/23 09:52 12/09/23 10:01 Acetaminophen 500mg Tab PO 12/09/23 09:53 1,000 mg ONCE ONE Administration Ibuprofen 600 mg 12/09/23 09:52 12/09/23 10:01 Ibuprofen 600 Mg Tablet PO 12/09/23 09:53 600 mg ONCE ONE Administration ORDERS Category Date Time Status CT bony pelvis Stat Cat Scan 12/09/23 09:[address] cervical spine wo con Stat Cat Scan 12/09/23 09:[address] head/brain wo con Stat Cat Scan 12/09/23 09:[address] lumbar spine wo con Stat Cat Scan 12/09/23 09:[address] thoracic spine wo con Stat Cat Scan 12/09/23 09:52 Completed Medical Decision Narrative: In summary patient is a 63-year-old female with past medical history described above who presents emergency department for evaluation of traumatic injury sustained in a fall from her bed of unknown height. Patient is hemodynamically stable upon arrival, tachycardic consistent with her baseline. She is an extremely poor historian and perseverates when asked multiple questions. Based on my exam she is tender in the lumbar spine and nontender everywhere else. She is not on anticoagulants. Differential includes intracranial hemorrhage, wor sening spinal compression fracture, chronic pain from known compression fracture, among others. Based on history and physical exam trauma survey will be conducted with noncontrasted CT scan of the head and spine. Initial inventions include Tylenol and ibuprofen. CT informally interpreted by me, no large intracranial hemorrhage. Formal read shows no acute intracranial abnormality. CT of the spine shows stable compression deformities, no acute fracture. Given this patient is appropriate for discharge at this time. Critical Care Critical Care Time Critical Care Time: No
[2023-12-09] MEDS: IBUPROFEN 600 MG TABLET PO (10:01)
[2023-12-09] MEDS: ACETAMINOPHEN 500MG TAB 1000 MG PO (10:01)
--- NOTE | 2023-12-09 10:14 | PC.NURSE ---
PT TO CT SCAN VIA STRETCHER
--- NOTE | 2023-12-09 10:35 | PC.NURSE ---
PT BACK IN ROOM FROM CT SCANS
[2023-12-09 11:00] VITALS: BP 124/69; PULSE 93; O2SAT 93
[2023-12-09 11:30] VITALS: BP 130/72; PULSE 92; O2SAT 94
--- NOTE | 2023-12-09 11:59 | PC.NURSE ---
report called to radha burr [facility]
[2023-12-09 12:00] VITALS: BP 113/68; PULSE 125; O2SAT 95
--- NOTE | 2023-12-09 12:00 | PC.NURSE ---
[facility] NOTIFIED OF TRANSFER TO [facility]
[2023-12-09 12:13] VITALS: BP 113/68; PULSE 88; RESP 18; TEMP 36.9; O2SAT 95
--- NOTE | 2023-12-09 12:22 | PC.NURSE ---
[facility] arrived to collect pt. Report given.
--- NOTE | 2023-12-09 12:25 | PC.NURSE ---
PT TRANSFERRED TO [facility] PER [facility]
== END 2023-12-09 12:25 | disposition home or self-care (01) ==
PROVIDERS: Emergency Provider Emergency Medicine; PCP Internal Medicine Adolescent Medicine
DX: M54.50 Low back pain, unspecified (principal); W19.XXXA Unspecified fall, initial encounter
CPT/HCPCS: 70450; 72125; 72128; 72131; 72192; 99285

== ENCOUNTER 2023-12-23 21:35 | Emergency (ER) | payer MEDICAID, SELFPAY ==
--- NOTE | 2023-12-23 21:34 | CT_ITS ---
PROCEDURE INFORMATION: Exam: CTA Abdomen and Pelvis With Contrast Exam date and time: 12/23/2023 10:03 PM Age: 63 years old Clinical indication: Injury or trauma; Additional info: Trauma, critical injury suspected TECHNIQUE: Imaging protocol: Computed tomographic angiography of the abdomen and pelvis with contrast. Exam focused on the arteries. 3D rendering (Not supervised by radiologist): MIP and/or 3D reconstructed images were created by the technologist. Radiation optimization: All CT scans at this facility use at least one of these dose optimization techniques: automated exposure control; mA and/or kV adjustment per patient size (includes targeted exams where dose is matched to clinical indication); or iterative reconstruction. Contrast material: ISOVUE; Contrast volume: 90 ml; Contrast route: INTRAVENOUS (IV); COMPARISON: CT ANGIO ABDOMEN PELVIS 30/10/2023 08:41 FINDINGS: Aorta: No aortic aneurysm. No aortic dissection. Celiac trunk and mesenteric arteries: No occlusion or significant stenosis. Renal arteries: No occlusion or significant stenosis. Right iliac arteries: No occlusion or significant stenosis. Left iliac arteries: No occlusion or significant stenosis. Other arteries: The arteries demonstrate moderate atherosclerotic disease. Liver: Possible hepatic steatosis. Gallbladder and biliary ducts: Unremarkable. No calcified stones. No ductal dilation. Pancreas: Unremarkable. No mass. No ductal dilation. Spleen: Unremarkable. No splenomegaly. Adrenal glands: Unremarkable. No mass. Kidneys and ureters: Unremarkable. No solid mass. No hydronephrosis. Stomach and bowel: Unremarkable. No obstruction. No mucosal thickening. Appendix: No evidence of appendicitis. Intraperitoneal space: Unremarkable. No free air. No significant fluid collection. Lymph nodes: Unremarkable. No enlarged lymph nodes. Urinary bladder: Unremarkable. No mass. Reproductive: Unremarkable as visualized. Bones/joints: No acute fracture. Soft tissues: Unremarkable. Other findings: Please see separate report for CT chest. Stigmata of old granulomatous disease. IMPRESSION: No acute intra-abdominal or intrapelvic organ injury.
--- NOTE | 2023-12-23 21:34 | CT_ITS ---
PROCEDURE INFORMATION: Exam: CT Head Without Contrast Exam date and time: 12/23/2023 9:41 PM Age: 63 years old Clinical indication: Injury or trauma; Fall; Additional info: Anisocoria, fall TECHNIQUE: Imaging protocol: Computed tomography of the head without contrast. Radiation optimization: All CT scans at this facility use at least one of these dose optimization techniques: automated exposure control; mA and/or kV adjustment per patient size (includes targeted exams where dose is matched to clinical indication); or iterative reconstruction. COMPARISON: CT HEAD/BRAIN WO CON 12/09/2023 10:18 AM FINDINGS: Brain: Normal. No hemorrhage. Unremarkable white matter. No mass effect. Cerebral ventricles: No ventriculomegaly. Paranasal sinuses: Visualized sinuses are unremarkable. No fluid levels. Mastoid air cells: Visualized mastoid air cells are well aerated. Bones: Unremarkable. No acute fracture. Soft tissues: Unremarkable. IMPRESSION: No acute intracranial abnormality.
--- NOTE | 2023-12-23 21:34 | CT_ITS ---
PROCEDURE INFORMATION: Exam: CTA Chest With Contrast Exam date and time: 12/23/2023 10:05 PM Age: 63 years old Clinical indication: Injury or trauma; Additional info: Trauma, critical injury suspected TECHNIQUE: Imaging protocol: Computed tomographic angiography of the chest with contrast. Exam focused on the arteries. 3D rendering (Not supervised by radiologist): MIP and/or 3D reconstructed images were created by the technologist. Radiation optimization: All CT scans at this facility use at least one of these dose optimization techniques: automated exposure control; mA and/or kV adjustment per patient size (includes targeted exams where dose is matched to clinical indication); or iterative reconstruction. Contrast material: ISOVUE; Contrast volume: 90 ml; Contrast route: INTRAVENOUS (IV); COMPARISON: CT ANGIO CHEST PE PROTOCOL 28/11/2023 20:34 FINDINGS: Pulmonary arteries: Normal. No pulmonary emboli. Aorta: The aorta demonstrates moderate atherosclerotic disease. Lungs: Mild centrilobular and paraseptal emphysema. Patchy posterior atelectasis. Pleural spaces: Unremarkable. No pneumothorax. No pleural effusion. Heart: Unremarkable. No cardiomegaly. No pericardial effusion. Lymph nodes: Unremarkable. No enlarged lymph nodes. Bones/joints: Old bilateral rib fractures. Soft tissues: Unremarkable. Other findings: Please see separate report for abdomen/pelvis. Stigmata of old granulomatous disease. IMPRESSION: No acute intrathoracic organ injury. COMMENTS: The presence of pulmonary emphysema on CT is an independent risk factor for lung cancer. In the absence of a history or active diagnosis of lung cancer, it is recommended that this patient with emphysema be evaluated for enrollment in a low dose CT lung cancer screening program.
--- NOTE | 2023-12-23 21:34 | CT_ITS ---
PROCEDURE INFORMATION: Exam: CT Lumbar Spine Without Contrast Exam date and time: 12/23/2023 9:49 PM Age: 63 years old Clinical indication: Pain; Additional info: Trauma, critical injury suspected TECHNIQUE: Imaging protocol: Computed tomography of the lumbar spine without contrast. Radiation optimization: All CT scans at this facility use at least one of these dose optimization techniques: automated exposure control; mA and/or kV adjustment per patient size (includes targeted exams where dose is matched to clinical indication); or iterative reconstruction. COMPARISON: CT LUMBAR SPINE WO CON 09/12/2023 10:26 FINDINGS: Bones/joints: Chronic T11 superior endplate fracture. Unchanged L4 complex compression fracture. Chronic superior endplate fractures of L2 and L3. Multiple chronic left transverse process fractures. Degenerative changes at L2-L3 producing moderate spinal stenosis. Degenerative changes at L3-L4 and L4-L5 produce severe spinal stenosis. Soft tissues: Unremarkable. Other findings: Please see separate report for abdomen/pelvis. IMPRESSION: 1. No acute fracture or malalignment of the lumbar spine. Multiple chronic fractures as detailed above. 2. Degenerative changes at L2-L3 producing moderate spinal stenosis. Degenerative changes at L3-L4 and L4-L5 produce severe spinal stenosis.
--- NOTE | 2023-12-23 21:34 | CT_ITS ---
PROCEDURE INFORMATION: Exam: CT Cervical Spine Without Contrast Exam date and time: 12/23/2023 9:43 PM Age: 63 years old Clinical indication: Pain; Additional info: Trauma, critical injury suspected TECHNIQUE: Imaging protocol: Computed tomography of the cervical spine without contrast. Radiation optimization: All CT scans at this facility use at least one of these dose optimization techniques: automated exposure control; mA and/or kV adjustment per patient size (includes targeted exams where dose is matched to clinical indication); or iterative reconstruction. COMPARISON: CT CERVICAL SPINE WO CON 12/09/2023 10:18 AM FINDINGS: Bones/joints: There are moderate degenerative changes present. Normal alignment. No acute fractures. Lungs: Lung apices are normal. Soft tissues: Unremarkable. IMPRESSION: No acute injury.
--- NOTE | 2023-12-23 21:34 | CT_ITS ---
PROCEDURE INFORMATION: Exam: CTA Head With Contrast, Arteriography Exam date and time: 12/23/2023 9:59 PM Age: 63 years old Clinical indication: Injury or trauma; Additional info: Anisocoria, fall TECHNIQUE: Imaging protocol: Computed tomographic angiography of the head with contrast. Exam focused on the arteries. 3D rendering (Not supervised by radiologist): MIP and/or 3D reconstructed images were created by the technologist. Radiation optimization: All CT scans at this facility use at least one of these dose optimization techniques: automated exposure control; mA and/or kV adjustment per patient size (includes targeted exams where dose is matched to clinical indication); or iterative reconstruction. Contrast material: ISOVUE; Contrast volume: 90 ml; Contrast route: INTRAVENOUS (IV); COMPARISON: CT HEAD/BRAIN WO CON 12/23/2023 9:41 PM FINDINGS: ANTERIOR CIRCULATION: Right internal carotid artery: Intracranial segment is patent with no significant stenosis. No aneurysm. Right middle cerebral artery: No occlusion or significant stenosis. No aneurysm. Right anterior cerebral artery: No occlusion or significant stenosis. No aneurysm. Left internal carotid artery: Intracranial segment is patent with no significant stenosis. No aneurysm. Left middle cerebral artery: No occlusion or significant stenosis. No aneurysm. Left anterior cerebral artery: No occlusion or significant stenosis. No aneurysm. POSTERIOR CIRCULATION: Right vertebral artery: No occlusion or significant stenosis. No aneurysm. Left vertebral artery: No occlusion or significant stenosis. No aneurysm. Basilar artery: No occlusion or significant stenosis. No aneurysm. Right posterior cerebral artery: No occlusion or significant stenosis. No aneurysm. Left posterior cerebral artery: No occlusion or significant stenosis. No aneurysm. Brain: No definite mass, mass effect, or midline shift. Cerebral ventricles: No ventriculomegaly. Bones/joints: Unremarkable. No acute fracture. Soft tissues: Unremarkable. IMPRESSION: No large vessel stenosis or occlusion. PROCEDURE INFORMATION: Exam: CTA Neck With Contrast Exam date and time: 12/23/2023 9:59 PM Age: 63 years old Clinical indication: Injury or trauma; Additional info: Anisocoria, fall TECHNIQUE: Imaging protocol: Computed tomographic angiography of the neck with contrast. Exam focused on the cervical segments of the vasculature. 3D rendering (Not supervised by radiologist): MIP and/or 3D reconstructed images were created by the technologist. COMPARISON: CT ANGIO NECK 12/23/2023 9:59 PM FINDINGS: Right common carotid artery: No stenosis. No dissection or occlusion. Right internal carotid artery: No stenosis of the extracranial segment. No dissection or occlusion. Right external carotid artery: No occlusion or stenosis of the origin. Left common carotid artery: No stenosis. No dissection or occlusion. Left internal carotid artery: No stenosis of the extracranial segment. No dissection or occlusion. Left external carotid artery: No occlusion or stenosis of the origin. Right vertebral artery: No stenosis. No dissection or occlusion. Left vertebral artery: No stenosis. No dissection or occlusion. Soft tissues: Normal. No significant soft tissue swelling. Bones/joints: No acute fracture. IMPRESSION: No stenosis or occlusion. REFERENCES: NASCET CRITERIA. The degree of stenosis in the cervical segment of the internal carotid artery is based on NASCET criteria. Normal is no stenosis. Mild is less than 50% stenosis. Moderate is 50-69% stenosis. Severe is 70% to 99% stenosis. Total occlusion is no detectable patent lumen.
--- NOTE | 2023-12-23 21:34 | CT_ITS ---
PROCEDURE INFORMATION: Exam: CT Thoracic Spine Without Contrast Exam date and time: 12/23/2023 9:47 PM Age: 63 years old Clinical indication: Injury or trauma; Additional info: Trauma, critical injury suspected TECHNIQUE: Imaging protocol: Computed tomography of the thoracic spine without contrast. Radiation optimization: All CT scans at this facility use at least one of these dose optimization techniques: automated exposure control; mA and/or kV adjustment per patient size (includes targeted exams where dose is matched to clinical indication); or iterative reconstruction. COMPARISON: CT THORACIC SPINE WO CON 23/12/2023 21:47 FINDINGS: Bones/joints: Multiple chronic endplate vertebral body deformities of the thoracic spine. Soft tissues: Unremarkable. Other findings: Please see separate report for CT chest. IMPRESSION: No acute fracture or malalignment of the thoracic spine.
[2023-12-23 21:35] VITALS: BP 164/88; PULSE 111; RESP 17; TEMP 36.8; O2SAT 93; BMI 21.6
--- NOTE | 2023-12-23 21:35 | CT_ITS ---
PROCEDURE INFORMATION: Exam: CT Pelvis Without Contrast; Skeletal Exam date and time: 12/23/2023 9:52 PM Age: 63 years old Clinical indication: Pain; Additional info: Trauma, critical injury suspected TECHNIQUE: Imaging protocol: Computed tomography of the pelvis without contrast. Exam focused on the skeleton. Radiation optimization: All CT scans at this facility use at least one of these dose optimization techniques: automated exposure control; mA and/or kV adjustment per patient size (includes targeted exams where dose is matched to clinical indication); or iterative reconstruction. COMPARISON: CT BONY PELVIS 09/12/2023 10:29 FINDINGS: Vasculature: The arteries demonstrate moderate atherosclerotic disease. Bones/joints: Left femoral lesser trochanteric bone island. Unchanged L4 fracture. No acute fracture or dislocation. Soft tissues: Unremarkable. IMPRESSION: No acute fracture or dislocation.
--- NOTE | 2023-12-23 21:35 | PC.NURSE ---
Contacted RAD in regards taking this patient straight to CT.
[2023-12-23 21:54] LABS: Chloride 108 mmol/L (98-107)
[2023-12-23 21:55] LABS: Potassium 3.6 mmoL/L (3.5-5.1); Sodium 142 mmol/L (136-145)
[2023-12-23 21:57] LABS: Alanine Aminotransferase 36 U/L (12-78); Alkaline Phosphatase 189 U/L (38-126); Aspartate Amino Transferase 32 U/L (14-36); Bilirubin,Total 0.2 mg/dl (0.2-1.3); Blood Urea Nitrogen 15 mg/dl (7-17); Estimated Glomerular Filt Rate 125 ml/min (>60); GFR (African American) 151 ML/MIN (>60)
[2023-12-23 21:58] LABS: Albumin Level 4.3 g/dl (3.5-5.0); Albumin/Globulin Ratio 1.2 (1.1-1.8); Anion Gap 11.6 mEq/L (5-15); Calcium 9.7 mg/dl (8.4-10.2); Carbon Dioxide 26 mmol/L (22.0-30.0); Globulin 3.6 g/dL (1.3-3.2); Glucose 138 mg/dl (74-100); Total Protein,Serum 7.9 g/dl (6.3-8.2)
[2023-12-23 22:00] LABS: Activated Partial Thrombo Time 24.9 seconds (22.8-30.6); INR 0.92 (0.9-1.1); Prothrombin Time 10.4 seconds (10.1-12.5)
[2023-12-23] MEDS: SODIUM CHLORIDE 0.9% 10ML FLUSH SYRINGE 10 ML IV (22:14)
[2023-12-23] MEDS: 0.9 % SODIUM CHLORIDE 50 ML VIAL 10 ML IV (22:14)
[2023-12-23] MEDS: IOPAMIDOL-370 (76%);100ML BOTTLE 180 ML IV (22:14)
--- NOTE | 2023-12-23 22:15 | PC.NURSE ---
Dr. Prabhakar is at bedside
[2023-12-23] MEDS: LACTATED RINGERS 1000ML 1,000 ML 999 ML IV ×2 (22:24→22:53)
[2023-12-23 22:29] LABS: Basophils # 0.1 K/mm3 (0-0.2); Basophils % 0.5 % (0.1-2.0); Eosinophils # 0.1 K/mm3 (0.0-0.4); Eosinophils % 0.8 % (0.1-12.0); Hemoglobin 12.6 g/dL (12.2-16.2); Lymphocytes # 1.7 K/mm3 (0.7-4.5); Lymphocytes % 16.8 % (10-50); Mean Corpuscular HGB Conc 32.2 g/dL (31.8-35.4); Mean Corpuscular Hemoglobin 29.1 pg (27.0-31.2); Mean Corpuscular Volume 90.3 fl (81-99); Mean Platelet Volume 8.1 fl (7.4-10.4); Monocytes # 0.4 K/mm3 (0.1-1.0); Monocytes % 3.7 % (1.7-9.3); Neutrophils # 7.8 K/mm3 (1.8-7.8); Neutrophils % 78.3 % (37.0-80.0); Platelet Count 269 K/mm3 (142-424); Red Blood Count 4.32 M/mm3 (4.20-5.40); Red Cell Distribution Width 15.6 % (11.5-17.5)
[2023-12-23 22:35] LABS: Creatine Kinase 65 U/L (30-135)
--- NOTE | 2023-12-23 22:44 | ECG_ITS ---
APPROVED REPORT Exam: Resting ECG HR:109 bpm ECG Measurements Heart Rate 109 AXES LA 148 P 65 QRSd 77 QRS 60 QT 329 T 46 QTc 393 Conclusion SINUS TACHYCARDIA ABNORMAL RHYTHM ECG Electronically signed by : AFSANEH ORTEZ, 12/24/2023 12:49:29
--- NOTE | 2023-12-23 22:49 | ED_ITS ---
Discharge Plan Disposition Patient Disposition: Home, Self-Care Prescriptions Prescriptions: No Action atorvastatin 20 mg tablet 20 mg PO DAILY trazodone 50 mg tablet 50 mg PO HS donepezil 10 mg tablet 10 mg PO HS sertraline 100 mg tablet 100 mg PO DAILY olanzapine 10 mg tablet 10 mg PO BID acetaminophen 500 mg tablet 1,000 mg PO NEEDED MDD ' PRN (Reason: Pain) famotidine 20 mg tablet 20 mg PO DAILY lorazepam 2 mg tablet 2 mg PO NEEDED PRN (Reason: behavior) aspirin 81 mg tablet,chewable 81 mg PO DAILY folic acid 1 mg tablet 1 mg PO DAILY polyethylene glycol 3350 17 gram/dose powder 17 g PO DAILY memantine 10 mg tablet 10 mg PO BID cetirizine 10 mg tablet 10 mg PO DAILY sulfamethoxazole-trimethoprim [Bactrim DS] 800-160 mg tablet 1 tab PO BID 5 Days Qty: 10 0RF Referrals Follow up/Referrals: Provider,Referral, [Primary Care Provider] - See instructions Activity Restrictions/Add. Instructions Additional Instructions/Restrictions: Your blood work, urinalysis and CT scans returned normal. Please follow-up with your primary care provider. Please return to the emergency department if you develop any new or worsening symptoms or become concerned for your health. Clinical Impressions Clinical Impression: Fall Qualifiers: Encounter type: initial encounter Qualified Code(s): W19.XXXA - Unspecified fall, initial encounter Discharge ED Provider: Adrien Louis General Adult HPI <Damian Prabhakar MD - Last Filed: 12/23/23 23:00> General Chief complaint: Fall Stated complaint: fall Time Seen by Provider: 12/23/23 21:37 Mode of Arrival: EMS Source of Information: EMS Limitations: Altered Mental Status Description of Symptoms (Recalled from ER Triage Doc. by RN): Pt presents to ED via EMS for an unwitnessed fall. Pt has dementia at baseline and is unable to respond to most questions. IV access established with EMS and pt taken straight to CT for scans. This RN actually cared for this pt approx 3 weeks ago after a fall at [place]. Pt is A&O*1 at this time and this is normal. History of Present Illness HPI narrative: Please note that above description of symptoms, in this electronic medical record under categorization of recalled from ER triage doctor by RN are reflective of an initial nursing assessment, however, is not reflective of my full history and physical exam that was personally taken and clarified. Consequentially, this preceding description of symptoms, which may include the patient's categorized chief complaint in the EMR, do not reflect my personal clinical impression, and the ultimate description of history of present illness and patient stated complaints should be deferred to this section of the note. Unless stated otherwise or congruent with this section of the note, additional signs, symptoms, or incongruence should be interpreted as inaccurate with my clinical impression. Related Data Home Medications Medication Instructions Recorded Confirmed acetaminophen 500 mg tablet 1,000 mg PO NEEDED PRN Pain 10/30/23 10/30/23 aspirin 81 mg chewable tablet 81 mg PO DAILY 10/30/23 10/30/23 atorvastatin 20 mg tablet 20 mg PO DAILY 10/30/23 10/30/23 cetirizine 10 mg tablet 10 mg PO DAILY 10/30/23 10/30/23 donepezil 10 mg tablet 10 mg PO HS 10/30/23 10/30/23 famotidine 20 mg tablet 20 mg PO DAILY 10/30/23 10/30/23 folic acid 1 mg tablet 1 mg PO DAILY 10/30/23 10/30/23 lorazepam 2 mg tablet 2 mg PO NEEDED PRN behavior 10/30/23 10/30/23 memantine 10 mg tablet 10 mg PO BID 10/30/23 10/30/23 olanzapine 10 mg tablet 10 mg PO BID 10/30/23 10/30/23 polyethylene glycol 3350 17 17 g PO DAILY 10/30/23 10/30/23 gram/dose oral powder sertraline 100 mg tablet 100 mg PO DAILY 10/30/23 10/30/23 trazodone 50 mg tablet 50 mg PO HS 10/30/23 10/30/23 Previous Rx's Medication Instructions Recorded sulfamethoxazole 800 1 tab PO BID 5 days #10 tabs 11/01/23 mg-trimethoprim 160 mg tablet (Bactrim DS) Allergies Allergy/AdvReac Type Severity Reaction Status Date / Time cephalexin [From Keflex] Allergy Verified 10/30/23 07:37 risperidone [From Risperdal] Allergy Verified 10/30/23 07:37 [facility] <Damian Prabhakar MD - Last Filed: 12/23/23 23:00> [facility] Disclaimer: The information contained in this section may have been updated after the patient was seen, as this information can be updated by other users. Medical History Personal history of traumatic brain injury Tremor, unspecified Age-related osteoporosis without current pathological fracture Gastro-esophageal reflux disease without esophagitis Vascular dementia, unspecified severity, without behavioral disturbance, psychotic disturbance, mood disturbance, and anxiety Vascular dementia, unspecified severity, with other behavioral disturbance Dementia with behavioral disturbance Major depressive disorder, single episode, unspecified Unspecified mood [affective] disorder Other seasonal allergic rhinitis Alcohol abuse Hyperlipemia Insomnia COPD (chronic obstructive pulmonary disease) Social History Smoking Status: Unknown if ever smoked alcohol intake: former current occupational status: other Travel in the last 8 weeks: None <Damian Prabhakar MD - Last Filed: 12/23/23 23:00> ROS Obtained: Yes All systems reviewed & no additional complaints except as documented Physical Exam <Damian Prabhakar MD - Last Filed: 12/23/23 23:00> General General appearance: alert and in distress Head Head exam: atraumatic and normocephalic Eye Eye exam: Present PERRL and EOMI ENT ENT exam: Present mucous membranes dry Neck Neck exam: Present normal inspection and trachea midline Chest Chest inspection: Present normal inspection and symmetric chest wall rise Respiratory Respiratory exam: Present normal lung sounds bilaterally; Absent respiratory distress, wheezes, stridor, accessory muscle use or prolonged expiratory phase Cardiovascular Cardiovascular exam: Present normal rhythm, tachycardia and other (Pulses equal and symmetric in upper and lower extremities) Abdominal Exam Abdominal exam: Present soft, distention and tenderness; Absent guarding, rebound or rigidity Abdominal tenderness: Present LUQ, LLQ and mild Extremities Exam Extremities exam: Absent edema Neurological Exam Neurological exam: Present alert, CN II-XII intact and other (Intermittently answering questions, but answering appropriately when she does answer.); Absent motor sensory deficit Skin Skin exam: Present warm and dry; Absent cyanosis, diaphoresis or pallor Medical Decision Making <Damian Prabhakar MD - Last Filed: 12/23/23 23:00> Medical Records Medical records reviewed: Yes I reviewed the patient's medical records. Isreal Inquiry Pt receiving controlled substance: No Isreal was queried for this patient: No Vital Signs: 12/23/23 21:35 12/23/23 23:00 12/23/23 23:30 Temperature 98.3 F Temperature Source Oral Pulse Rate 107 H 109 H Pulse Rate [Left] 111 H Respiratory Rate 17 15 18 Blood Pressure 171/95 H 149/86 H Blood Pressure [Right Arm] 164/88 H Blood Pressure Mean [Right Arm] 113 02 Sat by Pulse Oximetry 93 L 95 95 Oxygen Delivery Method Room Air Room Air 12/24/23 00:00 12/24/23 00:30 12/24/23 01:00 Temperature Temperature Source Pulse Rate 109 H Pulse Rate [Left] Respiratory Rate 25 H 18 15 Blood Pressure 158/83 H 164/91 H 139/83 Blood Pressure [Right Arm] Blood Pressure Mean [Right Arm] 02 Sat by Pulse Oximetry 96 98 96 Oxygen Delivery Method Lab Data Lab Results 12/23/23 21:40: WBC 10.0, RBC 4.32, Hgb 12.6, Hct 39.0, MCV 90.3, MCH 29.1, MCHC 32.2, RDW 15.6, Plt Count 269, MPV 8.1, Neut % (Auto) 78.3, Lymph % (Auto) 16.8, Barrow % (Auto) 3.7, Eos % (Auto) 0.8, Baso % (Auto) 0.5, Neut # (Auto) 7.8, Lymph # (Auto) 1.7, B[place] # (Auto) 0.4, Eos # (Auto) 0.1, Baso # (Auto) 0.1, PT 10.4, INR 0.92, APTT 24.9, Sodium 142, Potassium 3.6, Chloride 108 H, Carbon Dioxide 26, Anion Gap 11.6, BUN 15, Creatinine 0.50 L, Estimated GFR 125, Est GFR ( Amer) 151, Glucose 138 H, Calcium 9.7, Total Bilirubin 0.2, AST 32, ALT 36, Alkaline Phosphatase 189 H, Total Creatine Kinase 65, Troponin I < 0.01, Total Protein 7.9, Albumin 4.3, Globulin 3.6 H, Albumin/Globulin Ratio 1.2, Lipase 137 12/24/23 00:06: Urine Color Yellow, Urine Appearance Clear, Urine pH 7.0, Ur Specific Baldwin <= 1.005, Urine Protein Negative, Urine Glucose (UA) Negative, Urine Ketones Negative, Urine Blood Negative, Urine Nitrate Negative, Urine Bilirubin Negative, Urine Urobilinogen 0.2, Ur Leukocyte Esterase Negative, Urine RBC Occasional, Urine WBC None, Ur Squamous Epith Cells Occasional, Urine Bacteria None 12/23/23 21:40 12/23/23 21:40 Orders (Tests/Meds): ED MEDICATIONS Generic Name Dose Route Start Last Admin Trade Name Freq PRN Reason Stop Dose Admin Sodium Chloride 10 ml 12/23/23 21:35 12/23/23 22:14 Sodium Chloride 0.9% 10ml Flush Syringe IV 01/22/24 21:34 10 ml NEEDED PRN Administration Maintain IV Site Sodium Chloride 10 ml 12/23/23 22:09 Sodium Chloride 0.9% 10ml Syr (Rad Only) IV 01/22/24 22:08 NEEDED PRN Maintain IV Site Discontinued Medications Generic Name Dose Route Start Last Admin Trade Name Freq PRN Reason Stop Dose Admin Lactated Ringer's 1,000 mls @ 999 mls/hr 12/23/23 22:19 12/23/23 22:24 Lactated Ringer's 1000 Ml Bag IV 12/23/23 23:19 999 mls/hr .Q1H1M ONE Administration Lactated Ringer's 1,000 mls @ 999 mls/hr 12/23/23 22:20 12/23/23 22:53 Lactated Ringer's 1000 Ml Bag IV 12/23/23 23:20 999 mls/hr .Q1H1M ONE Administration Iopamidol 180 ml 12/23/23 22:09 12/23/23 22:14 Iopamidol-370 (76%);100ml Bottle IV 12/23/23 22:10 180 ml ONCE ONE Administration Sodium Chloride 10 ml 12/23/23 22:09 12/23/23 22:14 0.9 % Sodium Chloride 50 Ml Vial IV 12/23/23 22:10 10 ml ONCE ONE Administration ORDERS Category Date Time Status CT angio abdomen pelvis Stat Cat Scan 12/23/23 21:[address] angio chest - dissection Stat Cat Scan 12/23/23 21:[address] angio head Stat Cat Scan 12/23/23 21:[address] angio neck Stat Cat Scan 12/23/23 21:[address] bony pelvis Stat Cat Scan 12/23/23 21:[address] cervical spine wo con Stat Cat Scan 12/23/23 21:[address] head/brain wo con Stat Cat Scan 12/23/23 21:[address] lumbar spine wo con Stat Cat Scan 12/23/23 21:[address] thoracic spine wo con Stat Cat Scan 12/23/23 21:34 Completed Activated Partial Thrombo Time Stat Lab 12/23/23 21:40 Completed CBC w/Auto Diff [Complete Blood Count Auto Diff] Stat Lab 12/23/23 21:40 Completed CK [Creatine Kinase] Stat Lab 12/23/23 21:40 Completed Comprehensive Metabolic Panel Stat Lab 12/23/23 21:40 Completed Lipase Stat Lab 12/23/23 21:40 Completed Prothrombin Time INR Stat Lab 12/23/23 21:40 Completed Trop I [Troponin I] Stat Lab 12/23/23 21:40 Completed Troponin I Q3H Lab 12/24/23 01:15 Ordered Troponin I Q3H Lab 12/24/23 04:15 Ordered UA [Urinalysis and Microscopic] Stat Lab 12/24/23 00:06 Completed Medical Decision Narrative: Six 3-year-old female history of dementia, psychiatric comorbidities, likely selective mutism, compression fractures of multiple vertebra from recent fall presenting with concern for fall. Patient was unsupervised at retirement today given lack of staffing. Around 5:30 PM, patient's daughter received call that patient had fallen. Around 7:30 PM, daughter received a call stating that patient was now vomiting, patient's daughter opted to have patient sent to the emergency department for further evaluation. EMS states that on their arrival, patient was anisocoric and intermittently answering questions, appeared tired, so patient was stroke scanned. History was obtained via conversation with patient's family EMS. On arrival, patient hemodynamically stable, alert, oriented to person, appropriate, GCS 15, moving all extremities spontaneously, pupils equal and reactive to light. Full physical exam performed and significant for NIHSS 0 for me. Patient's pupils equal and reactive, no facial droop. Cardiac exam within normal limits, lungs are clear to auscultation bilaterally anterior and posteriorly. Patient does have some abdominal tenderness with mild distention left upper and left lower quadrant. Differential includes CVA, dissection, intracranial bleed, concussion, UTI, pneumonia, small bowel obstruction, pancreatitis, aortic pathology versus mesenteric ischemia, diverticulitis, ACS, OR, among others. Patient placed on continuous cardiac monitoring and continuous pulse ox with initial blood pressure 164/88, heart rate 111, saturation 93% on room air. Independent interpretation of EKG shows sinus tachycardia 109 beats a minute without ST or T wave changes concerning for acute schema. W[place] 148, QRS 77, QTc 393. Patient was given 2 L IV fluid given dehydration on physical exam for symptomatic management and correction of underlying abnormalities. Workup independently interpreted and significant for nonactionable CBC. Patient's coags negative. Kidney function normal, CMP negative, BNP and troponin negative. CK negative. CT head without acute intracranial hemorrhage. No acute abnormalities of the cervical, thoracic, or lumbar spine. Patient does have fluid-filled loops of bowel and stomach, but prior to final radiology read, care handed off to oncoming physician. [employer] Supervisor disclaimer Much of this encounter note is an electronic clock maker spoken language to printed text. Electronic clock maker of the spoken language may permit errors. Although I have reviewed the note, some errors may still exist. <Adrien Louis MD - Last Filed: 12/24/23 01:20> Vital Signs: 12/23/23 21:35 12/23/23 23:00 12/23/23 23:30 Temperature 98.3 F Temperature Source Oral Pulse Rate 107 H 109 H Pulse Rate [Left] 111 H Respiratory Rate 17 15 18 Blood Pressure 171/95 H 149/86 H Blood Pressure [Right Arm] 164/88 H Blood Pressure Mean [Right Arm] 113 02 Sat by Pulse Oximetry 93 L 95 95 Oxygen Delivery Method Room Air Room Air 12/24/23 00:00 12/24/23 00:30 12/24/23 01:00 Temperature Temperature Source Pulse Rate 109 H Pulse Rate [Left] Respiratory Rate 25 H 18 15 Blood Pressure 158/83 H 164/91 H 139/83 Blood Pressure [Right Arm] Blood Pressure Mean [Right Arm] 02 Sat by Pulse Oximetry 96 98 96 Oxygen Delivery Method Lab Data Lab Results 12/23/23 21:40: WBC 10.0, RBC 4.32, Hgb 12.6, Hct 39.0, MCV 90.3, MCH 29.1, MCHC 32.2, RDW 15.6, Plt Count 269, MPV 8.1, Neut % (Auto) 78.3, Lymph % (Auto) 16.8, Barrow % (Auto) 3.7, Eos % (Auto) 0.8, Baso % (Auto) 0.5, Neut # (Auto) 7.8, Lymph # (Auto) 1.7, [place] # (Auto) 0.4, Eos # (Auto) 0.1, Baso # (Auto) 0.1, PT 10.4, INR 0.92, APTT 24.9, Sodium 142, Potassium 3.6, Chloride 108 H, Carbon Dioxide 26, Anion Gap 11.6, BUN 15, Creatinine 0.50 L, Estimated GFR 125, Est GFR ( Amer) 151, Glucose 138 H, Calcium 9.7, Total Bilirubin 0.2, AST 32, ALT 36, Alkaline Phosphatase 189 H, Total Creatine Kinase 65, Troponin I < 0.01, Total Protein 7.9, Albumin 4.3, Globulin 3.6 H, Albumin/Globulin Ratio 1.2, Lipase 137 12/24/23 00:06: Urine Color Yellow, Urine Appearance Clear, Urine pH 7.0, Ur Specific Baldwin <= 1.005, Urine Protein Negative, Urine Glucose (UA) Negative, Urine Ketones Negative, Urine Blood Negative, Urine Nitrate Negative, Urine Bilirubin Negative, Urine Urobilinogen 0.2, Ur Leukocyte Esterase Negative, Urine RBC Occasional, Urine WBC None, Ur Squamous Epith Cells Occasional, Urine Bacteria None Orders (Tests/Meds): ED MEDICATIONS Generic Name Dose Route Start Last Admin Trade Name Freq PRN Reason Stop Dose Admin Sodium Chloride 10 ml 12/23/23 21:35 12/23/23 22:14 Sodium Chloride 0.9% 10ml Flush Syringe IV 01/22/24 21:34 10 ml NEEDED PRN Administration Maintain IV Site Sodium Chloride 10 ml 12/23/23 22:09 Sodium Chloride 0.9% 10ml Syr (Rad Only) IV 01/22/24 22:08 NEEDED PRN Maintain IV Site Discontinued Medications Generic Name Dose Route Start Last Admin Trade Name Freq PRN Reason Stop Dose Admin Lactated Ringer's 1,000 mls @ 999 mls/hr 12/23/23 22:19 12/23/23 22:24 Lactated Ringer's 1000 Ml Bag IV 12/23/23 23:19 999 mls/hr .Q1H1M ONE Administration Lactated Ringer's 1,000 mls @ 999 mls/hr 12/23/23 22:20 12/23/23 22:53 Lactated Ringer's 1000 Ml Bag IV 12/23/23 23:20 999 mls/hr .Q1H1M ONE Administration Iopamidol 180 ml 12/23/23 22:09 12/23/23 22:14 Iopamidol-370 (76%);100ml Bottle IV 12/23/23 22:10 180 ml ONCE ONE Administration Sodium Chloride 10 ml 12/23/23 22:09 12/23/23 22:14 0.9 % Sodium Chloride 50 Ml Vial IV 12/23/23 22:10 10 ml ONCE ONE Administration ORDERS Category Date Time Status CT angio abdomen pelvis Stat Cat Scan 12/23/23 21:[address] angio chest - dissection Stat Cat Scan 12/23/23 21:[address] angio head Stat Cat Scan 12/23/23 21:[address] angio neck Stat Cat Scan 12/23/23 21:[address] bony pelvis Stat Cat Scan 12/23/23 21:[address] cervical spine wo con Stat Cat Scan 12/23/23 21:[address] head/brain wo con Stat Cat Scan 12/23/23 21:[address] lumbar spine wo con Stat Cat Scan 12/23/23 21:[address] thoracic spine wo con Stat Cat Scan 12/23/23 21:34 Completed Activated Partial Thrombo Time Stat Lab 12/23/23 21:40 Completed CBC w/Auto Diff [Complete Blood Count Auto Diff] Stat Lab 12/23/23 21:40 Completed CK [Creatine Kinase] Stat Lab 12/23/23 21:40 Completed Comprehensive Metabolic Panel Stat Lab 12/23/23 21:40 Completed Lipase Stat Lab 12/23/23 21:40 Completed Prothrombin Time INR Stat Lab 12/23/23 21:40 Completed Trop I [Troponin I] Stat Lab 12/23/23 21:40 Completed Troponin I Q3H Lab 12/24/23 01:15 Ordered Troponin I Q3H Lab 12/24/23 04:15 Ordered UA [Urinalysis and Microscopic] Stat Lab 12/24/23 00:06 Completed Medical Decision Narrative: Six 3-year-old female history of dementia, psychiatric comorbidities, likely selective mutism, compression fractures of multiple vertebra from recent fall presenting with concern for fall. Patient was unsupervised at retirement today given lack of staffing. Around 5:30 PM, patient's daughter received call that patient had fallen. Around 7:30 PM, daughter received a call stating that patient was now vomiting, patient's daughter opted to have patient sent to the emergency department for further evaluation. EMS states that on their arrival, patient was anisocoric and intermittently answering questions, appeared tired, so patient was stroke scanned. History was obtained via conversation with patient's family EMS. On arrival, patient hemodynamically stable, alert, oriented to person, appropriate, GCS 15, moving all extremities spontaneously, pupils equal and reactive to light. Full physical exam performed and significant for NIHSS 0 for me. Patient's pupils equal and reactive, no facial droop. Cardiac exam within normal limits, lungs are clear to auscultation bilaterally anterior and posteriorly. Patient does have some abdominal tenderness with mild distention left upper and left lower quadrant. Differential includes CVA, dissection, intracranial bleed, concussion, UTI, pneumonia, small bowel obstruction, pancreatitis, aortic pathology versus mesenteric ischemia, diverticulitis, ACS, OR, among others. Patient placed on continuous cardiac monitoring and continuous pulse ox with initial blood pressure 164/88, heart rate 111, saturation 93% on room air. Independent interpretation of EKG shows sinus tachycardia 109 beats a minute without ST or T wave changes concerning for acute schema. W[place] 148, QRS 77, QTc 393. Patient was given 2 L IV fluid given dehydration on physical exam for symptomatic management and correction of underlying abnormalities. Workup independently interpreted and significant for nonactionable CBC. Patient's coags negative. Kidney function normal, CMP negative, BNP and troponin negative. CK negative. CT head without acute intracranial hemorrhage. No acute abnormalities of the cervical, thoracic, or lumbar spine. Patient does have fluid-filled loops of bowel and stomach, but prior to final radiology read, care handed off to oncoming physician. [employer] Supervisor disclaimer Much of this encounter note is an electronic clock maker spoken language to printed text. Electronic clock maker of the spoken language may permit errors. Although I have reviewed the note, some errors may still exist. Heriberto DAMON: I assumed care of the patient at the time of handoff from the prior provider. On reassessment patient was sleeping comfortably with a heart rate in the 90s. CT scans returned, no evidence of acute traumatic injuries. CT of the abdomen pelvis is read as normal. On my assessment, patient has no abdominal tenderness on exam. Urinalysis shows no evidence of UTI. Patient reports that nothing is bothering her right now. Given this, patient was deemed appropriate for discharge and discharged in stable condition. Critical Care <Damian Prabhakar MD - Last Filed: 12/23/23 23:00> Critical Care Time Critical Care Time: No
[2023-12-23 22:50] LABS: Troponin I < 0.01 ng/ml (0.00-0.034)
--- NOTE | 2023-12-23 22:56 | PC.NURSE ---
rounded on patient, patient given ice water, no other needs
[2023-12-23 23:00] VITALS: BP 171/95; PULSE 107; RESP 15; O2SAT 95
[2023-12-23 23:03] LABS: Lipase 137 U/L (23-300)
--- NOTE | 2023-12-23 23:08 | PC.NURSE ---
gave update to Jerri Rodriguez RN @ [facility]
[2023-12-23 23:30] VITALS: BP 149/86; PULSE 109; RESP 18; O2SAT 95
[2023-12-24] VITALS: BP 158/83; PULSE 109; RESP 25; O2SAT 96
[2023-12-24 00:30] VITALS: BP 164/91; RESP 18; O2SAT 98
[2023-12-24 00:30] LABS: Microscopic, Urine URINE MICROSCOPIC (MICROSCOPIC)
[2023-12-24 00:42] LABS: Appearance,Urine CLEAR (Clear); Bilirubin,Urine Negative (Negative); Blood, Urine Negative (Negative); Color,Urine YELLOW (Yellow); Glucose,Urine (UA) Negative (Negative); Ketones,Urine Negative (Negative); Leukocyte Esterase,Urine Negative (Negative); Nitrate,Urine Negative (Negative); Protein,Urine Negative (Negative); Specific Gravity, Urine <= 1.005 (1.005-1.030); Urobilinogen,Urine 0.2 EU/dl (0.2)
[2023-12-24 00:56] LABS: RBC,Urine Occasional #/hpf (0-3); Squamous Epithelial Cell,Urine Occasional #/hpf (0-5)
[2023-12-24 01:00] VITALS: BP 139/83; RESP 15; O2SAT 96
--- NOTE | 2023-12-24 01:18 | PC.NURSE ---
Tried to call report to [facility], no answer.
[2023-12-24 01:19] VITALS: BP 139/83; PULSE 103; RESP 16; TEMP 36.9; O2SAT 96
== END 2023-12-24 01:31 | disposition home or self-care (01) ==
PROVIDERS: Emergency Medicine; Emergency Provider Emergency Medicine
DX: R11.10 Vomiting, unspecified (principal); R10.819 Abdominal tenderness, unspecified site; W19.XXXA Unspecified fall, initial encounter
CPT/HCPCS: 70450; 70496; 70498; 71275; 72125; 72128; 72131; 72192; 74174; 80053; 81001; 82550; 83690; 84484; 85025; 85610; 85730; 93005; 96360; 99285; J7120; Q9967